=== PATIENT | female | born 1955 | race African-American/Black ===

== ENCOUNTER 2021-02-24 15:37 | Inpatient (IN) | payer OTHER ==
--- OUTSIDE RECORDS SUMMARY | 2021-02-24 15:41 | XMS REPORT | Continuity of Care Document ---
:1955 Author Organization [facility] t Address [address] [place] [address] Support Name Relationship Address Phone Emily Auguste Other Unavailable GarticaAriadna Other Unavailable GARTICA, TOM Unavailable [address] [facility] [phone] [place] [address] [place] [address] GARTICA, TOM Unavailable [address] [facility] [phone] [address] [place] [address] CESAR LAWRENCE MD Emergency Provider [address] [facility] [address] [phone] [place] [address] REYES LAWRENCE MD L Admitting Provider [address] [place] [address] GARTICA Next of Kin [address] [facility] [phone] [place] [address] Miranda CHOWDARY MD Emergency Provider [address] [facility] [place] [address] KELLEN LAWRENCE MD G Primary Care Physician [address] [place] [address] CHAPARRITA LAWRENCE Emergency Provider [address] [facility] [place] [address] GARTICA Child [address] [place] [address] MD WILLIE Emergency Provider [address] [phone] [place] [id number] ADAM Unavailable [address]available [place] [id number] MD TEVIN Emergency Provider Unavailable Unavailable MD RANJEET L Emergency Provider [address] [place] [address] DO BRENNON Emergency Provider [address] [facility] [address] [email or web address] [address] NINOSKA HAMILTON MD S Emergency Provider [address] [place] [address] MD REYES L Admitting Provider [address] [phone] [place] [address] MD JANINA Emergency Provider [address] [facility] [place] [address] MD RODRIGO O Emergency Provider [address] [place] [address] Care Team Providers Name Role Phone Grzegorz LAWRENCE, Siraj Primary Care Physician Sarah Attending Clinician Unavailable Roger Attending Clinician Unavailable Shay Attending Clinician Unavailable Brandon GONZALEZ Attending Clinician Unavailable DR DENISA Attending Clinician Unavailable Physician, Primary or Family Admitting Clinician Unavailabl e BYRON Admitting Clinician Unavailable Roger Admitting Clinician Unavailable DR DENISA Admitting Clinician Unavailable Payers Payer Name Policy Type Policy Number Effective Date Expiration Date S ource Problems Condition Condition Condition Status Onset Resolution Last Treating Co mments Source Name Details Category Date Date Treatment Clinician Date Lung mass Lung mass Disease Active Met hodi 10-05 [facility] 00[facility]00: Hospita 00 l Allergies, Adverse Reactions, Alerts Allergy Allergy Status Severity Reaction(s) Onset Inactive Treating Comm ents Source Name Type Date Date Clinician No Known DA Active U [facility] Allergie 10-14 [facility] s 00:00: d 00 [facility] No Known DA Active U [facility] Allergie 03-01 Clear s 00:00: Ellis 00 [facility] Social History Social Habit Start Date Stop Date Quantity Comments Source Sex Ass[birth year] At [birth year] [facility] 00:00:00 00:00:00 Smoking Status Start Date Stop Date Source Former smoker 2019-10-11 00:00:00 2019-10-11 00:00:00 [facility] Medications Ordered Filled Start Stop Current Ordering Indication Dosage Frequency Signature Comments Components Source Medication Medication Date Date Medication? Clinician (SIG) Name Name albuterol 2020- No [id number] 2.5mg Q6H Take 3 mL Methodi (ACCUNEB) 10-10 1004 (2.[address] 2.5 mg /3 00:00: 04:59 total) by Ho spita mL (0.083 00 :00 nebulizati l %) on every 6 nebulizer (six) solution hours as needed for wheezing for up to 30 days. albuterol 2019-0 2020- No [id number] 2{puff} Q6H Inhale 2 Method[facility] (PROAIR 10-10 10-[address] HFA) 90 00:00: 04:59 every 6 Hospit a mcg/actuati 00 :00 (six) l on inhaler hours as needed for wheezing for up to 30 days. predniSONE 2019- 2020- No Take 4 Meth carolina (DELTASONE) 10-10 09-23 tabs for 5 s t 10 mg 00:00: 04:59 days, 3 Hospita tablet 00 :00 tabs for 5 l days, 2 tabs for 5 days, 1 tabs for 5days fluticasone 2019-0 2019- No QD Inhale 1 M ethodi furoate-korey 10-07 10-01 inhalation s t anteroL 00:00: 04:59 s once Hospita (BREO 00 :00 daily for l ELLIPTA) 30 days. 100-25 mcg/dose blister with device powder for inhalation ipratropium 2019-0 Yes 3mL Q.25D Take 3 mL Methodi -albuteroL 8-[address] (DUO-NEB) 00:00: nebulizati Ho spita 0.5-2.5 00 on 4 l mg/3 mL (four) nebulizer times a day as needed for wheezing. pantoprazol 2019-0 2019- No 40mg QD Take 1 Met hodi e 10-06 09-30 tablet (40 st (Protonix) 00:00: 04:59 mg total) H ospita 40 MG EC 00 :00 by mouth l tablet daily for 30 days. albuterol 2019-0 2020- No 2{puff} Q6H Inhale 2 Method[facility] (PROAIR 10-06 09-[address] HFA) 90 00:00: 04:59 every 6 Hospit a mcg/actuati 00 :00 (six) l on inhaler hours as needed for wheezing or shortness of breath for up to 14 days. naproxen Yes Twice A Method i (EC 4-[address] NAPROSYN) 00:00: Pain Hospita 375 MG 00 l tablet,rebekah yed release (DR/EC) EC tablet traMADol-ac Yes Every 4-6 M ethodi etaminophen 4-[address] (ULTRACET) 00:00: Needed as Ho spita 37.5-325 mg 00 needed for l per tablet Pain nitrofurant Yes Twice A Met mervin velez -16 Day for - st macrocrysta 00:00: Hospit a l-monohydra 00 l te, (MACROBID) 100 MG capsule Procedures Procedure Date / Time Performed Performing Clinician Noy canada [id number] 2020-10-16 00:00:00 [facility] [id number] 2020-10-16 00:00:00 [facility] [id number] 2020-10-16 00:00:00 [facility] [id number] 2020-10-16 00:00:00 [facility] [id number] 2020-10-16 00:00:00 [facility] [id number] 2020-10-16 00:00:00 [facility] [id number] 2019-10-24 00:00:00 [facility] [id number] 2019-10-24 00:00:00 [facility] [id number] 2019-10-24 00:00:00 [facility] [id number] 2019-10-22 00:00:00 [facility] of Care Planned Activity Planned Date Details Comments Source Future Scheduled Test COVID-19 VACCINE (1) [facility] [code = COVID-19 VACCINE (1)] Future Scheduled Test Hepatitis C screening [facility] (procedure) [code = 365371262] Future Scheduled Test Screening for malignant [facility] neoplasm of cervix (procedure) [code = 591879542] Future Scheduled Test BREAST CANCER SCREENING [facility] [code = BREAST CANCER SCREENING] Future Scheduled Test COLONOSCOPY SCREENING [facility] [code = COLONOSCOPY SCREENING] Future Scheduled Test SHINGLES VACCINES (#1) [facility] [code = SHINGLES VACCINES (#1)] Future Scheduled Test INFLUENZA VACCINE [code [facility] = INFLUENZA VACCINE] Encounters Start End Encounter Admission Attending Care Care Encounter Source Date/Time Date/Time Type Type Clinicians Facility Department ID 2019-11-01 Inpatient Dated, [facility]AC[facility] ENDO [id number] [facility] 10:00:00 [facility] [id number] [facility] 2019-10-31 Inpatient Dated, [facility] ENDO [id number] [facility] 10:30:00 [facility] [id number] [facility] 2019-10-21 Inpatient HCAPM MARCELINO [id number] [facility] 07:03:00 [id number] [facility] 2020-10-14 2020-10-17 Inpatient EM Duran, HCAPM HCAPM [id number] [facility] 15:15:00 12:02:00 [facility] 99 [facility] 2020-10-14 2020-10-17 Inpatient EM Duran, HCAPM INTE.02 [id number] [facility] 15:15:00 12:02:00 [facility] [id number] [facility] 2020-10-14 2020-10-14 Outpatient Duran, HCACL LABO [id number] [facility] 01:32:00 01:32:00 [facility] [id number] [facility] 2020-10-13 2020-10-13 Inpatient EM Duran, HCAPM INTE.02 [id number] [facility] 18:32:00 18:31:00 [facility] [id number] [facility] 2019-10-21 2019-10-21 Outpatient Shay, HCACL LABO [id number] [facility] 23:52:00 23:52:00 Oladipo [id number] [facility] 2019-10-16 2019-10-16 Telephone Brandon, [id number] [id number] [place] 00:00:00 00:00:00 Cinda [id number] Hospit [id number] .[id number] l .8 2019-02-23 2019-02-23 Outpatient Jessica CRAWLEY [facility] [id number] 17:56:00 19:22:00 [facility] Results Test Description Test Time Test Comments Results Result Comments Source SURG 2020-10-20 13:30:00 Test Item Value Reference Range Interpretation Brendan loco SURG RUN DATE: (test 11/10/20 H ROB Luis Sipsey - LAB PAGE 1 RUN TIME: 1045 code = Specimen I nquiry RUN USER: INTERFACE SURG) PATIENT: XIOMARA BUTT LOC: Zarina U #: [id number] AGE/SX: 64/F ROOM: [facility] RE10/14/20REG DR: Elijah Duran MD : 57 BED: 1 DIS: 10/17/20 STATUS: DIS IN TLOC: SPEC #: [id number] RECD: STATUS: SOUT REQ #: [id number] BRENT: 10/16/20-[address]: Elijah Duran MD ENTERED: 10/16/20 SP TYPE: SURG OTHR DR: No Primary or Family Physician Sen Chew MD, Sonal MD Undefined ProviderORDERED: SURG PATH LVL / COPIES TO: No Primary or Family Physician Sen Chew MD [address] [facility] [address] [place], [place] [address] [place] [address] [place] [address] .[employer] [place] [address] [employer] [address] [place] [address] Undefined Provider HISTOLOGY : TISSUE ID BLK PCS ELGIN LEV PROCEDURE DISPOSITION ____ ___ ___ ___ LUNG, NOS A 1 2 LUNG, NOS B 1 2 LUNG, NOS C 1 2 PROCEDURES: SURG PATH LVL 4 (10/16/20-1309) TISSUES: A. LUNG, NOS - RUL ENDOBRONCHIAL BIOP SY B. LUNG, NOS - STATION 4L LYMPH NODE C. LUNG, NOS - STATION 7 LYMPH NODE CONTINUED ON NEXT PAGE RUN DATE: 11/10/20 H ROB Luis Sipsey - [facility] PAGE 2 RUN TIME: 1045 Specimen Inquiry RUN USER: INTERFACE SPEC #: [id number] PATIENT: XIOMARA BUTT #[id number] (Continued) CONSULTATION Dr. Donovan has reviewed this case and agrees with the diagnosis. CPT CODES CPT CODE(S): 60849H 3 , , , , , , FINAL DIAGNOSIS A. L karli, right upper lobe, endobronchial biopsy: INVASIVE SQUAMOUS CELL CARCINOMA, MODERATELY DIFFER ENTIATED B. Lymph node, station 4L, biopsy: ATYPICAL CELLS SUSPICIOUS FOR MALIGNANCY SEE COMMENTS C. Lymph node, station 7, biopsy: NO EVIDENCE OF SIGNIFICANT ATYPIA OR MALIGN OTONIEL SEE COMMENTS GROSS DESCRIPTION A. RUL endobronchial biopsy. Received in formalin are mu ltiple fragments of rai-brown soft tissue, 2.2 x 1.0 x 0.3 cm in aggregate. The entire specimen is fi ltered in a tea bag and submitted as A. /ba/liat B. Station 4L lymph node. Received in formalin are multiple thin cores of brown soft tissue, 1.7 x 0.4 x 0.1 cm in aggregate. The specimen is filtered in a tea bag and entirely submitted as B. /ba/liat C. Station 7 lymph node. Recei evens in formalin are multiple thin cores of brown soft tissue, 1.2 x 0.3 x 0.1 cm in aggregate. The en tire specimen is filtered in a tea bag and submitted as C. /ba/liat [facility], [address] [facility], [address], [place] [address]. [employer]: Jeff farias M.D. MICROSCOPIC DESCRIPTION A. RUL endobronchial biopsy. Sections show fragm ents of focally necrotic tissue with infiltrating neoplastic cells with increased nuclear to cytopla smic ratio and eosinophilic cytoplasm. The tumor cells are p63 positive and TTF1 negative. Focal microcalcification is also identified. Findings are CONTINUED ON NEXT PAGE RUN DATE: 11/10/20 ROB Luis Sipsey - [facility] PAGE 3 RUN TIME: 1045 Specimen Inquiry RUN USER: INTERFACE SPEC #: [facility]:[id number] PATIENT: XIOMARA BUTT #[id number] (Continued) MICROSCOPIC DESCRIPTION (Continued) consistent with invasive squamous cell carcinoma, moderately differentiated. B. Station 4L lymph node. Sections show cores of mostly blood and a few atypical cells suspici ous for malignancy. No definitive lymphoid tissue identified to confirm lymph node origin. C. Station 7 lymph node. Sections show cores of blood and benign cartilage. No lymphoid tissue identifie d. No evidence of malignancy identified. /liat The immunohistochemistry stains listed above for tech nical and professional components were performed at [facility]. CPT Code(s): 94831, 61810 MOLECULAR REPORT- ADDENDUM Addendum #1 Entered: [facility] - Molecular Genetics EGFR Mu tation Analysis by [place] Accession / CaseNo: [id number] / [id number] Specimen ID: [id number] Received Date: 11/03/2020 Report Date: 11/08/2020 Results: Test Result Mutations EGFR Mutation EGFR Exon 18 Not Detected N/A EGFR Exon 19 Not Detected N/A EGFR Exon 20 T790M Not Detected N/A EGFR Exon 20 Other Mutations Not Detected N/A EGFR Exon 21 Not Detected N/A Electronic Signature Shiping Dmitry Bean., Ph.D. The Technical Component Processing, Analys is and Professional Component of this test was completed at [facility], [address] [place] [address], [place] / [address] / [phone] / CLIA #[id number] / [employer](s): Riki mathias M.D.. The performance characteristics of this test have been determined by [facility]. This test has not been approved by the FDA. The FDA has determined such clearance or approval is not necessary. This laboratory is CLIA certified to perform high complexity clinical rui ting. Images that may be included within this report are parts representative of the patient but not all testing in its entirety and should not be used to render a result. CONTINUED ON NEXT PAGE RUN DATE: 11/10/20 H ROB Luis [facility] PAGE 4 RUN TIME: 1045 Specimen Inquiry RUN USER: INTERFACE SPEC #: [facility]:[id number] PATIENT: XIOMARA BUTT #[id number] (Continued) MOLECULAR REPORT- ADDENDUM (Continued) The CPT codes provided with our test descriptions are based on [employer] and [employer] daisy delines and are for informational purposes only. Correct CPT coding is the sole responsibility of the b illing democrat. Please direct any questions regarding coding to the payer being billed. Addendum Sign ed SIGNATURE ON FILE Malcolm Saldana 11/10/20 1044 IMMUNOHISTOCHEMICAL REPORT Addendum #1 E ntered: 11/10/20 [facility] - Molecular Gene tics EGFR Mutation Analysis by Jessica Accession / CaseNo: [id number] / [id number] Specimen ID: [id number] Received Date: 11/03/2020 Report D ate: 11/08/2020 Results: PD-L1 22C3 FDA for NSCLC: EXPRESSED Tumor Proportion Score: 40 % Intensity: 2+ ALK (D5F3) Negative - Absence of strong granular cytoplasmic staining in tu mor cells Electronic Signature Angelina Gustafson M.D., Pathologist The Technical Component Processing, Analysis and Professional Component of this test was completed at [facility], [address] [facility] [place], [place] / [address] / [phone] / CLIA #[id number] / [employer](s): Madison MetzD.. The performance characteristics of the IHC/TRINY assays have been validated o n formalin-fixed paraffin embedded tissues only. This laboratory is certified under the Clinic al Laboratory Improvement Amendments of 1988 ("CLIA") as qualified to perform high complexity clin [facility] laboratory testing. For the classifications of IHC antibodies, please contact the Client Services team. Images that may be included within this report are parts representative of the CONTINUED ON NEXT PAGE RUN DATE: 11/10/20 H ROB Luis [facility] PAGE 5 RUN TIME: 1045 Specimen Inquiry RUN USER: INTERFACE SPEC #: [facility]:[id number] PATIENT: XIOMARA BUTT #[id number] (Continued) IMMUNOHISTOCHEMICAL REPORT (Continued) patient but not all testing in its entirety and should not be used to render a result . The CPT codes provided with our test descriptions are based on AMA guidelines and are for inf ormational purposes only. Correct CPT coding is the sole responsibility of the billing democrat. Please d irect any questions regarding coding to the payer being billed. Addendum Signed SIGNATURE ON FILE Maya Mercedessymone 11/10/20 1044 COMMENT: Biopsies from pa rt B (station 4L lymph node) and part C (station 7 lymph node) show no significant lymphoid tissue. However, a few atypical cells are identified on station 4L biopsy, highly suspicious for malignancy. Clinical correlation is recommended. Signed SIGNATURE ON FILE Malcolm Mercedes 10/20/20 1330 END O F REPORT [id number] 13:30:00 Test Item Value Reference Range Interpretation Comments SURG (test code = SURG) --RUN DATE: 10/20/20 [facility] PAGE 1 RUN TIME: 1330 Specimen Inquiry RUN USER: INTERFACE --PATIENT: XIOMARA BUTT LOC: [place] U #: [id number] AGE/SX: 64/F ROOM: [facility] RE10/14/20REG DR: Elijah Duran MD : 57 BED: 1 DIS: 10/17/20 STATUS: DIS IN TLOC: -- SPEC #: [id number] RECD: 10/16/20 STATUS: ULISSES LAURENT #: [id number] BRENT: 10/16/20-[address]: Elijah Duran MD ENTERED: 10/16/20 SP TYPE: SURG OTHR DR: Nessa Primary or Family Physician Sen Chew MD, Sonal MD Undefined ProviderORDERED: SURG PATH LVL 05/10 COPIES TO: No Primary or Family Physician Sen Chew MD [address] [facility] [address] [place] [address] [place] [address] [place] [address] .[employer] [place] [address] [facility] [address] [place] [address] Undefined Provider HISTOLOGY: TISSUE ID BLK PCS ELGIN LEV PROCEDURE DISPOSITION ____ ___ ___ ___ LUNG, NOS A 1 2 LUNG, NOS B 1 2 LUNG, NOS C 1 2 PROCEDURES: SURG PATH LVL 4 (10/16/20-1310) TISSUES: A. LUNG, NOS - RUL ENDOBRONCHIAL BIOPSY B. LUNG, NOS - STATION 4L LYMPH NODE C. LUNG, NOS - STATION 7 LYMPH NODE CONTINUED ON NEXT PAGE --RUN DATE: 10/20/20 [facility] PAGE 2 RUN TIME: 1330 Specimen Inquiry RUN USER: INTERFACE --SPEC #: [id number] PATIENT: ABIOLA BUTTZAHIDACRISTELALien #[id number] (Continued) CONSULTATION Dr. Donovan has reviewed this case and agrees with the diagnosis. CPT CODES CPT CODE(S): 06897P6 , , , , , , FINAL DIAGNOSIS A. Lung, right upper lobe, endobronchial biopsy: INVASIVE SQUAMOUS CELL CARCINOMA, MODERATELY DIFFERENTIATED B. Lymph node, station 4L, biopsy: ATYPICAL CELLS SUSPICIOUS FOR MALIGNANCY SEE COMMENTS C. Lymph node, station 7, biopsy: NO EVIDENCE OF SIGNIFICANT ATYPIA OR MALIGNANCY SEE COMMENTS GROSS DESCRIPTION A. RUL endobronchial biopsy. Received in formalin are multiple fragments of rai-brown soft tissue, 2.2 x 1.0 x 0.3 cm in aggregate. The entire specimen is filtered in a tea bag and submitted as A. /ba/liat B. Station 4L lymph node. Received in formalin are multiple thin cores of brown soft tissue, 1.7 x 0.4 x 0.1 cm in aggregate. The specimen is filtered in a tea bag and entirely submitted as B. /ba/liat C. Station 7 lymph node. Received in formalin are multiple thin cores of brown soft tissue, 1.2 x 0.3 x 0.1 cm in aggregate. The entire specimen is filtered in a tea bag and submitted as C. /ba/liat Grossing performed at [facility], [address] [place] [address], [address], [place] [address]. [employer]: Jeff Hart M.D. MICROSCOPIC DESCRIPTION A. RUL endobronchial biopsy. Sections show fragments of focally necrotic tissue with infiltrating neoplastic cells with increased nuclear to cytoplasmic ratio and eosinophilic cytoplasm. The tumor cells are p63 positive and TTF1 negative. Focal microcalcification is also identified. Findings are CONTINUED ON NEXT PAGE --RUN DATE: 10/20/20 [facility] PAGE 3 RUN TIME: 1330 Specimen Inquiry RUN USER: INTERFACE --SPEC #: [facility]:[id number] PATIENT: XIOMARA BUTT #[id number] (Continued) MICROSCOPIC DESCRIPTION (Continued) consistent with invasive squamous cell carcinoma, moderately differentiated. B. Station 4L lymph node. Sections show cores of mostly blood and a few atypical cells suspicious for malignancy. No definitive lymphoid tissue identified to confirm lymph node origin. C. Station 7 lymph node. Sections show cores of blood and benign cartilage. No lymphoid tissue identified. No evidence of malignancy identified. /liat The immunohistochemistry stains listed above for technical and professional components were performed at [facility]. CPT Code(s): 65796, 44940 COMMENT: Biopsies from part B (station 4L lymph node) and part C (station 7 lymph node) show no significant lymphoid tissue. However, a few atypical cells are identified on station 4L biopsy, highly suspicious for malignancy. Clinical correlation is recommended. Signed SIGNATURE ON FILE Malcolm Mercedes 10/20/20 1330 -- END OF REPORT [id number] 12:32:00 Test Item Value Reference Range Interpretation Comments CYTOLOGY (test code = CYTO) RUN DATE: 10/20/20 [facility] PAGE 1 RUN TIME: 1232 Specimen Inquiry RUN USER: INTERFACE PATIENT: XIOMARA BUTT LOC: [place]ina U #: [id number] AGE/SX: 64/F ROOM: [facility] RE10/14/20[facility] DR: Elijah Duran MD : 57 BED: 1 DIS: 10/17/20 STATUS: DIS IN TLOC: SPEC #: [id number] RECD: 10/16/200 STATUS: ULISSES REAlivia #: [id number] BRENT: 10/16/[address]: Elijah Duran MD ENTERED: 10/16/20 SP TYPE: CYTOLOGY OTHR DR: No Primary or Family Physician Sen Chew MD, Sonal MD Undefined ProviderORDERED: AFB, GMS, SUREPATH COPIES TO: No Primary or Family Physician Sen Chew MD [address] [facility] [address] [place], [place] [address] [place] [address] [place] [address] [email or web address] [place] [address] [facility] [address] [place] [address] Undefined Provider HISTOLOGY: TISSUE ID BLK PCS ELGIN LEV PROCEDURE DISPOSITION ____ ___ ___ ___ LUNG, NOS A 3S PROCEDURES: AFB (10/16/20) GMS (10/16/20) SUREPATH (10/16/20) TISSUES: A. LUNG, NOS - RUL BAL CONTINUED ON NEXT PAGE RUN DATE: 10/20/20 [facility] PAGE 2 RUN TIME: 1232 Specimen Inquiry RUN USER: INTERFACE SPEC #: [id number] PATIENT: XIOMARA BUTT #[id number] (Continued) CONSULTATION Dr. Donovan has reviewed this case and agrees with the diagnosis. CPT CODES CPT CODE(S): 56878T4 , 90492 , , , , , FINAL DIAGNOSIS Lung, right upper lobe, bronchoalveolar lavage: ATYPICAL CELLS SUSPICOUS FOR MALIGNANCY (See comments) NO DEFINITIVE EVIDENCE OF MALIGNANCY GROSS DESCRIPTION Right upper lobe BAL. Received are 25 mL of bloody fluid. Thin-layers are prepared from the fluid and submitted for Pap, GMS and AFB stains. /pdb Grossing performed at [facility], [address] [place] [address], [address], [place] [address]. [employer]: Jeff Hart M.D. MICROSCOPIC DESCRIPTION Right upper lobe BAL. Thin-layer, GMS and AFB stained slides are reviewed. The thin-layer slide shows squamous cells, histiocytes and columnar cells. There are a few groups of atypical cells that are suspicous for malignancy. No fungal organisms or acid-fast bacilli identified GMS and AFB stains. respectively. /pdb COMMENT: There are few clusters of atypical cells identified. Findings suspicous for malignancy. Please correlate with corresponding biopsy submitted under separate cover: [id number]:[id number]. - Signed SIGNATURE ON FILE Malcolm Mercedes 10/20/20 1232 END OF REPORT BODY FLUID CELL [id number] 20:10:00 Test Item Value Reference Range Interpretation Comments FLUID SOURCE (test OTHER DESCRIPT FLUID TYPE code = SOURCEFL) FLUID COLOR (test RED DESCRIP. COLORLESS code = COLFL) FLUID APPEARANCE BLOODY DESCRIP. CLEAR (test code = APPFL) FLUID WBC (test 175 #/mm3 0-0 H code = WBCFL) FLUID RBC (test 6505 #/mm3 0-0 H code = RBCFL) FLUID POLY (test 37 % See_Comment [Automated code = POLYFL) message] The system which generated this result transmitted reference range : 0-. The referen ce range was not u sed to interpret th is result as normal/abnormal . FLUID LYMPHOCYTE 42 % 0-78 N (test code = LYMPHFL) FLUID MONOCYTE 21 % 0-71 N (test code = MONOFL) FLUID COMMENT (test 0%CREN INTERP NONE code = COMFL) CBC W/AUTO [id number] 06:52:00 Test Item Value Reference Range Interpretation Comments WHITE BLOOD CELL 11.1 K/mm3 3.5-11.0 H (test code = WBC) RED BLOOD CELL (test 4.24 M/mm3 4.70-6.10 L code = RBC) HEMOGLOBIN (test code 12.8 G/DL 10.4-14.9 N = HGB) HEMATOCRIT (test code 40.0 % 31.5-44.1 N = HCT) MEAN CELL VOLUME 94.3 Fl 84.5-98.6 N (test code = MCV) MEAN CELL HGB (test 30.2 pg 27.0-34.2 N code = MCH) MEAN CELL HGB 32.0 G/DL 31.5-34.0 N CONCETRATION (test code = MCHC) RED CELL DISTRIBUTION 13.2 SD 11.5-14.5 N WIDTH (test code = RDW) PLATELET COUNT (test 256 K/mm3 150-450 N code = PLT) MEAN PLATELET VOLUME 8.80 fL 7.0-10.5 N (test code = MPV) NEUTROPHIL % (test 95.8 % 40-76 H code = NT%) IMMATURE GRANULOCYTE 0.6 % 0.0-5.0 N % (test code = IG%) LYMPHOCYTE % (test 2.2 % 20.5-51.1 L code = LY%) MONOCYTE % (test code 1.3 % 1.7-9.3 L = MO%) EOSINOPHIL % (test 0.0 % 0.0-6.0 N code = EO%) BASOPHIL % (test code 0.1 % 0.0-2.0 N = BA%) NUCLEATED RBC % (test 0.0 /100WBC% 0.0-1.0 N code = NRBC%) NEUTROPHIL # (test 10.6 K/mm3 1.8-7.6 H code = NT#) IMMATURE GRANULOCYTE 0.07 x10 3/uL 0.00-0.03 H # (test code = IG#) LYMPHOCYTE # (test 0.3 K/mm3 0.6-3.2 L code = LY#) MONOCYTE # (test code 0.2 K/mm3 0.3-1.1 L = MO#) EOSINOPHIL # (test 0.0 K/mm3 0.0-0.4 N code = EO#) BASOPHIL # (test code 0.0 K/mm3 0.0-0.1 N = BA#) NUCLEATED RBC # (test 0.0 K/mm3 0.0-0.1 N code = NRBC#) MANUAL DIFF REQUIRED NO DIFF/SCN CRITERIA SLIDE R JEANNE (test code = MDIFF) CONSISTA NT WITH AUTO DIFFERENTI AL. BASIC METABOLIC [id number] 06:26:00 Test Item Value Reference Range Interpretation Comments SODIUM (test code = NA) 143 mmol/L 134-147 N POTASSIUM (test code = 3.9 mmol/L 3.4-5.0 N K) CHLORIDE (test code = 108 mmol/L 100-108 N CL) CARBON DIOXIDE (test 29 mmol/L 21-32 N code = CO2) ANION GAP (test code = 6.0 GAP calc 4.0-15.0 N GAP) GLUCOSE (test code = 121 MG/DL 70-110 H GLU) BLOOD UREA NITROGEN 19 MG/DL 7-18 H (test code = BUN) GLOMERULAR FILTRATION >=60 max estimate >60 RATE (test code = GFR) estGFR CREATININE (test code = 0.6 MG/DL 0.6-1.0 N CREAT) CALCIUM (test code = CA) 9.3 MG/DL 8.5-10.1 N CBC W/AUTO [id number] 05:52:00 Test Item Value Reference Range Interpretation Comments WHITE BLOOD CELL (test code = WBC) 11.1 K/mm3 3.5-11.0 H RED BLOOD CELL (test code = RBC) 4.24 M/mm3 4.70-6.10 L HEMOGLOBIN (test code = HGB) 12.8 G/DL 10.4-14.9 N HEMATOCRIT (test code = HCT) 40.0 % 31.5-44.1 N MEAN CELL VOLUME (test code = MCV) 94.3 Fl 84.5-98.6 N MEAN CELL HGB (test code = MCH) 30.2 pg 27.0-34.2 N MEAN CELL HGB CONCETRATION (test 32.0 G/DL 31.5-34.0 N code = MCHC) RED CELL DISTRIBUTION WIDTH (test SD 11.5-14.5 N code = RDW) PLATELET COUNT (test code = PLT) 256 K/mm3 150-450 N MEAN PLATELET VOLUME (test code = fL 7.0-10.5 N MPV) NEUTROPHIL % (test code = NT%) % 40-76 H IMMATURE GRANULOCYTE % (test code % 0.0-5.0 N = IG%) LYMPHOCYTE % (test code = LY%) % 20.5-51.1 L MONOCYTE % (test code = MO%) % 1.7-9.3 L EOSINOPHIL % (test code = EO%) % 0.0-6.0 N BASOPHIL % (test code = BA%) % 0.0-2.0 N NUCLEATED RBC % (test code = /100WBC% 0.0-1.0 N NRBC%) NEUTROPHIL # (test code = NT#) K/mm3 1.8-7.6 H IMMATURE GRANULOCYTE # (test code x10 3/uL 0.00-0.03 H = IG#) LYMPHOCYTE # (test code = LY#) K/mm3 0.6-3.2 L MONOCYTE # (test code = MO#) K/mm3 0.3-1.1 L EOSINOPHIL # (test code = EO#) K/mm3 0.0-0.4 N BASOPHIL # (test code = BA#) K/mm3 0.0-0.1 N NUCLEATED RBC # (test code = K/mm3 0.0-0.1 N NRBC#) MANUAL DIFF REQUIRED (test code = DIFF/SCN CRITERIA MDIFF) CBC W/AUTO [id number] 07:06:00 Test Item Value Reference Range Interpretation Comments WHITE BLOOD CELL 12.7 K/mm3 3.5-11.0 H (test code = WBC) RED BLOOD CELL (test 4.07 M/mm3 4.70-6.10 L code = RBC) HEMOGLOBIN (test code 12.5 G/DL 10.4-14.9 N = HGB) HEMATOCRIT (test code 38.9 % 31.5-44.1 N = HCT) MEAN CELL VOLUME 95.6 Fl 84.5-98.6 N (test code = MCV) MEAN CELL HGB (test 30.7 pg 27.0-34.2 N code = MCH) MEAN CELL HGB 32.1 G/DL 31.5-34.0 N CONCETRATION (test code = MCHC) RED CELL DISTRIBUTION 13.2 SD 11.5-14.5 N WIDTH (test code = RDW) PLATELET COUNT (test 243 K/mm3 150-450 N code = PLT) MEAN PLATELET VOLUME 10.40 fL 7.0-10.5 N (test code = MPV) NEUTROPHIL % (test 94.1 % 40-76 H code = NT%) IMMATURE GRANULOCYTE 0.6 % 0.0-5.0 N % (test code = IG%) LYMPHOCYTE % (test 2.7 % 20.5-51.1 L code = LY%) MONOCYTE % (test code 2.5 % 1.7-9.3 N = MO%) EOSINOPHIL % (test 0.0 % 0.0-6.0 N code = EO%) BASOPHIL % (test code 0.1 % 0.0-2.0 N = BA%) NUCLEATED RBC % (test 0.0 /100WBC% 0.0-1.0 N code = NRBC%) NEUTROPHIL # (test 12.0 K/mm3 1.8-7.6 H code = NT#) IMMATURE GRANULOCYTE 0.08 x10 3/uL 0.00-0.03 H # (test code = IG#) LYMPHOCYTE # (test 0.3 K/mm3 0.6-3.2 L code = LY#) MONOCYTE # (test code 0.3 K/mm3 0.3-1.1 N = MO#) EOSINOPHIL # (test 0.0 K/mm3 0.0-0.4 N code = EO#) BASOPHIL # (test code 0.0 K/mm3 0.0-0.1 N = BA#) NUCLEATED RBC # (test 0.0 K/mm3 0.0-0.1 N code = NRBC#) MANUAL DIFF REQUIRED NO DIFF/SCN CRITERIA SLIDE R MAIRAW (test code = MDIFF) CONSISTA NT WITH AUTO DIFFERENTI AL. BASIC METABOLIC [id number] 06:06:00 Test Item Value Reference Range Interpretation Comments SODIUM (test code = NA) 139 mmol/L 134-147 N POTASSIUM (test code = 4.3 mmol/L 3.4-5.0 N K) CHLORIDE (test code = 107 mmol/L 100-108 N CL) CARBON DIOXIDE (test 29 mmol/L 21-32 N code = CO2) ANION GAP (test code = 3.0 GAP calc 4.0-15.0 L GAP) GLUCOSE (test code = 123 MG/DL 70-110 H GLU) BLOOD UREA NITROGEN 16 MG/DL 7-18 N (test code = BUN) GLOMERULAR FILTRATION >=60 max estimate >60 RATE (test code = GFR) estGFR CREATININE (test code = 0.5 MG/DL 0.6-1.0 L CREAT) CALCIUM (test code = CA) 9.1 MG/DL 8.5-10.1 N CBC W/AUTO [id number] 05:34:00 Test Item Value Reference Range Interpretation Comments WHITE BLOOD CELL (test code = WBC) 12.7 K/mm3 3.5-11.0 H RED BLOOD CELL (test code = RBC) 4.07 M/mm3 4.70-6.10 L HEMOGLOBIN (test code = HGB) 12.5 G/DL 10.4-14.9 N HEMATOCRIT (test code = HCT) 38.9 % 31.5-44.1 N MEAN CELL VOLUME (test code = MCV) 95.6 Fl 84.5-98.6 N MEAN CELL HGB (test code = MCH) 30.7 pg 27.0-34.2 N MEAN CELL HGB CONCETRATION (test 32.1 G/DL 31.5-34.0 N code = MCHC) RED CELL DISTRIBUTION WIDTH (test SD 11.5-14.5 N code = RDW) PLATELET COUNT (test code = PLT) 243 K/mm3 150-450 N MEAN PLATELET VOLUME (test code = fL 7.0-10.5 N MPV) NEUTROPHIL % (test code = NT%) % 40-76 H IMMATURE GRANULOCYTE % (test code % 0.0-5.0 N = IG%) LYMPHOCYTE % (test code = LY%) % 20.5-51.1 L MONOCYTE % (test code = MO%) % 1.7-9.3 N EOSINOPHIL % (test code = EO%) % 0.0-6.0 N BASOPHIL % (test code = BA%) % 0.0-2.0 N NUCLEATED RBC % (test code = /100WBC% 0.0-1.0 N NRBC%) NEUTROPHIL # (test code = NT#) K/mm3 1.8-7.6 H IMMATURE GRANULOCYTE # (test code x10 3/uL 0.00-0.03 H = IG#) LYMPHOCYTE # (test code = LY#) K/mm3 0.6-3.2 L MONOCYTE # (test code = MO#) K/mm3 0.3-1.1 N EOSINOPHIL # (test code = EO#) K/mm3 0.0-0.4 N BASOPHIL # (test code = BA#) K/mm3 0.0-0.1 N NUCLEATED RBC # (test code = K/mm3 0.0-0.1 N NRBC#) MANUAL DIFF REQUIRED (test code = DIFF/SCN CRITERIA MDIFF) CBC W/AUTO [id number] 06:21:00 Test Item Value Reference Range Interpretation Comments WHITE BLOOD CELL 6.1 K/mm3 3.5-11.0 N (test code = WBC) RED BLOOD CELL (test 4.07 M/mm3 4.70-6.10 L code = RBC) HEMOGLOBIN (test code 12.4 G/DL 10.4-14.9 N = HGB) HEMATOCRIT (test code 39.4 % 31.5-44.1 N = HCT) MEAN CELL VOLUME 96.8 Fl 84.5-98.6 N (test code = MCV) MEAN CELL HGB (test 30.5 pg 27.0-34.2 N code = MCH) MEAN CELL HGB 31.5 G/DL 31.5-34.0 N CONCETRATION (test code = MCHC) RED CELL DISTRIBUTION 13.2 SD 11.5-14.5 N WIDTH (test code = RDW) PLATELET COUNT (test 261 K/mm3 150-450 N code = PLT) MEAN PLATELET VOLUME 9.20 fL 7.0-10.5 N (test code = MPV) NEUTROPHIL % (test 96.0 % 40-76 H code = NT%) IMMATURE GRANULOCYTE 0.2 % 0.0-5.0 N % (test code = IG%) LYMPHOCYTE % (test 2.6 % 20.5-51.1 L code = LY%) MONOCYTE % (test code 1.2 % 1.7-9.3 L = MO%) EOSINOPHIL % (test 0.0 % 0.0-6.0 N code = EO%) BASOPHIL % (test code 0.0 % 0.0-2.0 N = BA%) NUCLEATED RBC % (test 0.0 /100WBC% 0.0-1.0 N code = NRBC%) NEUTROPHIL # (test 5.8 K/mm3 1.8-7.6 N code = NT#) IMMATURE GRANULOCYTE 0.01 x10 3/uL 0.00-0.03 N # (test code = IG#) LYMPHOCYTE # (test 0.2 K/mm3 0.6-3.2 L code = LY#) MONOCYTE # (test code 0.1 K/mm3 0.3-1.1 L = MO#) EOSINOPHIL # (test 0.0 K/mm3 0.0-0.4 N code = EO#) BASOPHIL # (test code 0.0 K/mm3 0.0-0.1 N = BA#) NUCLEATED RBC # (test 0.0 K/mm3 0.0-0.1 N code = NRBC#) MANUAL DIFF REQUIRED NO DIFF/SCN CRITERIA SLIDE R EVIEW (test code = MDIFF) CONSISTA NT WITH AUTO DIFFERENTI AL. BASIC METABOLIC [id number] 06:08:00 Test Item Value Reference Range Interpretation Comments SODIUM (test code = NA) 141 mmol/L 134-147 N POTASSIUM (test code = 4.4 mmol/L 3.4-5.0 N K) CHLORIDE (test code = 109 mmol/L 100-108 H CL) CARBON DIOXIDE (test 26 mmol/L 21-32 N code = CO2) ANION GAP (test code = 6.0 GAP calc 4.0-15.0 N GAP) GLUCOSE (test code = 147 MG/DL 70-110 H GLU) BLOOD UREA NITROGEN 18 MG/DL 7-18 N (test code = BUN) GLOMERULAR FILTRATION >=60 max estimate >60 RATE (test code = GFR) estGFR CREATININE (test code = 0.7 MG/DL 0.6-1.0 N CREAT) CALCIUM (test code = CA) 8.8 MG/DL 8.5-10.1 N [id number] 06:08:00 Test Item Value Reference Range Interpretation Comments PHOSPHOROUS (test code = PHOS) 2.9 MG/DL 2.5-4.9 N [id number] 06:08:00 Test Item Value Reference Range Interpretation Comments MAGNESIUM (test code = MAG) 2.1 MG/DL 1.8-2.4 N [id number] 06:08:00 Test Item Value Reference Range Interpretation Comments TROPONIN-I (test < 0.015 NG/ML 0.000-0.045 N Negative: </= 0.045 code = TROPI) Positive: >/= 0.046 Correlation wit h serial results, other cardiac markers, and cl inical findings is nec essary to determine the c linical significance of this result. Quantit ative results using d ifferent methodologies s hould not be compared to one another as nume rical results may mireille yby method. BASIC METABOLIC [id number] 04:54:00 Test Item Value Reference Range Interpretation Comments SODIUM (test code = NA) 141 mmol/L 134-147 N POTASSIUM (test code = 4.4 mmol/L 3.4-5.0 N K) CHLORIDE (test code = 109 mmol/L 100-108 H CL) CARBON DIOXIDE (test 26 mmol/L 21-32 N code = CO2) ANION GAP (test code = 6.0 GAP calc 4.0-15.0 N GAP) GLUCOSE (test code = 147 MG/DL 70-110 H GLU) BLOOD UREA NITROGEN 18 MG/DL 7-18 N (test code = BUN) GLOMERULAR FILTRATION >=60 max estimate >60 RATE (test code = GFR) estGFR CREATININE (test code = 0.7 MG/DL 0.6-1.0 N CREAT) CALCIUM (test code = CA) 8.8 MG/DL 8.5-10.1 N [id number] 04:54:00 Test Item Value Reference Range Interpretation Comments PHOSPHOROUS (test code = PHOS) 2.9 MG/DL 2.5-4.9 N [id number] 04:54:00 Test Item Value Reference Range Interpretation Comments MAGNESIUM (test code = MAG) 2.1 MG/DL 1.8-2.4 N [id number] 04:54:00 Test Item Value Reference Range Interpretation Comments TROPONIN-I (test code = TROPI) NG/ML 0.000-0.045 CBC W/AUTO [id number] 04:32:00 Test Item Value Reference Range Interpretation Comments WHITE BLOOD CELL (test code = WBC) 6.1 K/mm3 3.5-11.0 N RED BLOOD CELL (test code = RBC) 4.07 M/mm3 4.70-6.10 L HEMOGLOBIN (test code = HGB) 12.4 G/DL 10.4-14.9 N HEMATOCRIT (test code = HCT) 39.4 % 31.5-44.1 N MEAN CELL VOLUME (test code = MCV) 96.8 Fl 84.5-98.6 N MEAN CELL HGB (test code = MCH) 30.5 pg 27.0-34.2 N MEAN CELL HGB CONCETRATION (test 31.5 G/DL 31.5-34.0 N code = MCHC) RED CELL DISTRIBUTION WIDTH (test SD 11.5-14.5 N code = RDW) PLATELET COUNT (test code = PLT) 261 K/mm3 150-450 N MEAN PLATELET VOLUME (test code = fL 7.0-10.5 N MPV) NEUTROPHIL % (test code = NT%) % 40-76 H IMMATURE GRANULOCYTE % (test code % 0.0-5.0 N = IG%) LYMPHOCYTE % (test code = LY%) % 20.5-51.1 L MONOCYTE % (test code = MO%) % 1.7-9.3 L EOSINOPHIL % (test code = EO%) % 0.0-6.0 N BASOPHIL % (test code = BA%) % 0.0-2.0 N NUCLEATED RBC % (test code = /100WBC% 0.0-1.0 N NRBC%) NEUTROPHIL # (test code = NT#) K/mm3 1.8-7.6 N IMMATURE GRANULOCYTE # (test code x10 3/uL 0.00-0.03 N = IG#) LYMPHOCYTE # (test code = LY#) K/mm3 0.6-3.2 L MONOCYTE # (test code = MO#) K/mm3 0.3-1.1 L EOSINOPHIL # (test code = EO#) K/mm3 0.0-0.4 N BASOPHIL # (test code = BA#) K/mm3 0.0-0.1 N NUCLEATED RBC # (test code = K/mm3 0.0-0.1 N NRBC#) MANUAL DIFF REQUIRED (test code = DIFF/SCN CRITERIA MDIFF) [id number] 01:54:00 Test Item Value Reference Range Interpretation Comments TROPONIN-I (test < 0.015 NG/ML 0.000-0.045 N Negative: </= 0.045 code = TROPI) Positive: >/= 0.046 Correlation wit h serial results, other cardiac markers, and cl inical findings is nec essary to determine the c linical significance of this result. Quantit ative results using d ifferent methodologies s hould not be compared to one another as nume rical results may mireille yby method. Completed by Nursing: REI RFLX MICR CULT IF [id number] 01:42:00 Test Item Value Reference Range Interpretation Comments UA COLOR (test code = COLU) YELLOW discript YEL/STRAW UA APPEARANCE (test code = CLEAR discript CLEAR APPU) UA GLUCOSE DIPSTICK (test 2+ mg/dL NEG code = DGLUU) UA BILIRUBIN DIPSTICK (test NEGATIVE mg/dL NEG code = BILU) UA KETONE DIPSTICK (test NEGATIVE mg/dL NEG code = KETU) UA SPECIFIC GRAVITY (test 1.010 SG 1.005-1.030 code = SGU) UA BLOOD DIPSTICK (test TRACE mg/DL NEG A code = TONY) UA PH DIPSTICK (test code = 6.0 pH UNITS 5.0-7.0 SHON) UA PROTEIN DIPSTICK (test NEGATIVE mg/dL NEG code = PROU) UA UROBILINIOGEN DIPSTICK 0.2 mg/dL <2.0 (test code = URO) UA NITRITE DIPSTICK (test NEGATIVE SCREEN NEG code = NICOLLE) UA LEUKOCYTE ESTERASE NEGATIVE Leuk/mcL NEGATIVE DIPSTICK (test code = LEUU) UA CULTURE NEEDED? (test Criteria Culture CHK code = UACULT) Indication for culture: Dysuria/FrequencyUA RFLX MICR CULT IF INDICATED 2020-10-14 01:42:00 Test Item Value Reference Range Interpretation Comments UA COLOR (test code = COLU) YELLOW discript YEL/STRAW UA APPEARANCE (test code = CLEAR discript CLEAR APPU) UA GLUCOSE DIPSTICK (test 2+ mg/dL NEG code = DGLUU) UA BILIRUBIN DIPSTICK (test NEGATIVE mg/dL NEG code = BILU) UA KETONE DIPSTICK (test NEGATIVE mg/dL NEG code = KETU) UA SPECIFIC GRAVITY (test 1.010 SG 1.005-1.030 code = SGU) UA BLOOD DIPSTICK (test TRACE mg/DL NEG A code = TONY) UA PH DIPSTICK (test code = 6.0 pH UNITS 5.0-7.0 SHON) UA PROTEIN DIPSTICK (test NEGATIVE mg/dL NEG code = PROU) UA UROBILINIOGEN DIPSTICK 0.2 mg/dL <2.0 (test code = URO) UA NITRITE DIPSTICK (test NEGATIVE SCREEN NEG code = NICOLLE) UA LEUKOCYTE ESTERASE NEGATIVE Leuk/mcL NEGATIVE DIPSTICK (test code = LEUU) Indication for culture: [id number] 22:57:00 Test Item Value Reference Range Interpretation Comments D-DIMER (test 1313 ng/mLFEU 215-500 HH THROMBOSIS AN D/OR PULMONARY code = EMBOLISM AND TH E CLINICAL DDIMER) CUT-OFF VALUE F OR EXCLUSION (500 ng/mL FEU) OF THESE CONDITIONSIS VA LIDATED BY THE MANUFACTURE R OF THE METHOD. A NEGAT QUINTON D-DIMER RESULT WHEN COM BINED WITH A CLINICALASSESSM ENT OF LOW PRETEST PROBABI LITY HAS BEEN SHOWN TO H AVEA HIGH NEGATIVE PREDIC TIVE VALUE OF DVT OR PE. D -DIMER VALUES >500 ng/ mL FEU ARE NOT DIAGNOSTIC FOR DVT, PEor DIC WITHOU T OTHER CONFIRMATORY TE STS AND APPROPRIATECLIN ICAL EUALUATIONS. - CTA CHEST FOR [id number] 22:38:00 [facility] 1955 Sex: F Name: XIOMARA BUTT [facility]ly [facility] : 1955ge/S: 64 / F [address] [address] [place] [employer] Unit #: [id number] Loc: [place] [address] Phys: Danie Diaz Acct: [id number] Dis Date: Status: ADM IN PHONE#: [phone] Exam Date: 10/13/20202219 FAX #: Reason:hypoxia, r/o PE, evaluate right hemithorax EXAMS: CPT: [id number] [place] [id number] AFTER HOURS SERVICE ON: 10/13/2020 10:[address] Scan of the Chest With ContrastLocation Code M12 History: hypoxia, r/o PE, evaluate right hemithorax Technique: Scans were performed on a helical scanner post IV contrast. Coronal and sagittal reconstructions were performed. 3-D post processing was not performed. One or more of the following dose reduction techniques were used: Automated exposure control, adjustment of the mA and/or kV according to patient size, and/or utilization of iterative reconstruction technique. FINDINGS: There are no filling defects in the pulmonary arteries to suggest a pulmonary embolism. No large central or saddle embolus is seen in the pulmonary trunk. No aortic aneurysm or dissection seen. There is extensive consolidation in the right upper lobe likely representing postobstructive pneumonitis and atelectasis. There is truncation of the upper lobe bronchi. There is significant narrowing of the descending and right middle lobe bronchi. Ill-defined soft tissue encasement is noted in the right hilum. On today's examination, the density appears very ill-defined rather than masslike as compared to the prior of 10/21/2019. Estimated dimensions are 4.5 x 3.6 cm, previously 6.8 x 3.9 cm. Heart and mediastinum are shifted to the right. There is no cardiom egaly or pericardial effusion. Scattered peripheral infiltrates are seen in the lower lobes bilaterally. There are emphysematous changes. There is no pulmonary edema. There is no pneumothorax. No osseous destructive lesions are seen. IMPRESSION:No evidence of pulmonary embolism, aortic aneurysm or dissection. Extensive right upper lobe atelectasis and postobstructive pneumonitis due to an ill-defined soft tissue density in the right hilum encasing the bronchi as further described above. These findings may be PAGE 1 Signed Report (CONTINUED) Name: XIOMARA BUTT [facility]ly [facility] : 1955 Age/S: 64 / F [address] [address] [place] [employer] Unit #: [id number] Loc: [place] [address] Phys: Danie Diaz Acct: [id number] Dis Date: Status: ADM IN PHONE #: [phone] Exam Date: 10/13/20202219 FAX #: Reason: hypoxia, r/o PE, evaluate right hemithorax EXAMS: CPT: [id number] [id number] <Continued> consistentwith recurrent neoplasm. Follow-up PET scan is recommended. Small peripheral infiltrates in the lung bases. Emphysematous changes. at 2238 Reported and signed by: Joselyn Lindsey M.D. CC: Danie HERNANDEZ; Elijah Duran MD Technologist:RT Gail(R) CTDI: DLP: Trnscb Date/Time: 10/13/2020 (2237) [email or web address] Orig Print D/T: S: 10/13/2020 (8356) PAGE 2 Signed Report COVID 19 INHOUSE [id number] 21:42:00 Test Item Value Reference Range Interpretation Comments COVID 19 INHOUSE AG NEGATIVE Negative Per saba facturer, (test code = negative result s should [id number]) be treated aspr esumptive and, if inconsi stent with clinical signs andsymptoms or necessary for patient man agement, should betested with an alternative mol ecular assay. Negative resultsdo not preclude SA RS-CoV-2 infection and s hould not be usedas the s ole basis for patient man agement decisions. Neg ative results should be considered in t he context of apatient's r ecent exposures, hist ory, presence of cli nicalsigns and symptoms co nsistent with COVID-19. CBC W/AUTO [id number] 21:03:00 Test Item Value Reference Range Interpretation Comments WHITE BLOOD CELL 7.2 K/mm3 3.5-11.0 N (test code = WBC) RED BLOOD CELL (test 4.15 M/mm3 4.70-6.10 L code = RBC) HEMOGLOBIN (test code 12.8 G/DL 10.4-14.9 N = HGB) HEMATOCRIT (test code 39.5 % 31.5-44.1 N = HCT) MEAN CELL VOLUME 95.2 Fl 84.5-98.6 N (test code = MCV) MEAN CELL HGB (test 30.8 pg 27.0-34.2 N code = MCH) MEAN CELL HGB 32.4 G/DL 31.5-34.0 N CONCETRATION (test code = MCHC) RED CELL DISTRIBUTION 13.4 SD 11.5-14.5 N WIDTH (test code = RDW) PLATELET COUNT (test 253 K/mm3 150-450 N code = PLT) MEAN PLATELET VOLUME 9.00 fL 7.0-10.5 N (test code = MPV) NEUTROPHIL % (test 88.5 % 40-76 H code = NT%) IMMATURE GRANULOCYTE 0.3 % 0.0-5.0 N % (test code = IG%) LYMPHOCYTE % (test 5.2 % 20.5-51.1 L code = LY%) MONOCYTE % (test code 3.5 % 1.7-9.3 N = MO%) EOSINOPHIL % (test 2.4 % 0.0-6.0 N code = EO%) BASOPHIL % (test code 0.1 % 0.0-2.0 N = BA%) NUCLEATED RBC % (test 0.0 /100WBC% 0.0-1.0 N code = NRBC%) NEUTROPHIL # (test 6.3 K/mm3 1.8-7.6 N code = NT#) IMMATURE GRANULOCYTE 0.02 x10 3/uL 0.00-0.03 N # (test code = IG#) LYMPHOCYTE # (test 0.4 K/mm3 0.6-3.2 L code = LY#) MONOCYTE # (test code 0.3 K/mm3 0.3-1.1 N = MO#) EOSINOPHIL # (test 0.2 K/mm3 0.0-0.4 N code = EO#) BASOPHIL # (test code 0.0 K/mm3 0.0-0.1 N = BA#) NUCLEATED RBC # (test 0.0 K/mm3 0.0-0.1 N code = NRBC#) MANUAL DIFF REQUIRED NO DIFF/SCN CRITERIA SLIDE R MAIRAW (test code = MDIFF) CONSISTA NT WITH AUTO DIFFERENTI AL. ARTERIAL BLOOD [id number] 20:16:00 Test Item Value Reference Range Interpretation Comments ARTERIAL BLOOD GAS PH 7.36 pH units 7.35-7.45 N (test code = PHA) ARTERIAL BLOOD GAS PCO2 52 mmHg 35-45 H (test code = PCO2A) ARTERIAL BLOOD GAS PO2 85 mmHg 80-100 N (test code = PO2A) BICARBONATE TOTAL HCO3 28.4 mmol/L 22.0-26.0 H (test code = HCO3) BASE EXCESS (test code = 1.9 mmol/L -3.0-3.0 N JUAN J) ABG O2 SATURATION (test 96 % 90-100 N code = SATA) FIO2 (test code = FIO2A) 40 % (calc) 21-100 N ABG VENT MODE (test code Nasal Cannula Vent Mode = MODEA) Descript ABG SITE (test code = Right Radial ARTKIT DESCRIPTION SITEA) MODIFIED HA'S (test Yes Circ.CHK POSITIVE code = MODALL) [id number] 20:16:00 Test Item Value Reference Range Interpretation Comments PaO2/FiO2 (test 212.5 mm/Hg See_Comment [Automated message] The code = [id number]) system [facility] generated this result tra nsmitted reference range : 200. The reference r mirza was not used to int erpret this result as normal/abnormal . ARTERIAL BLOOD [id number] 20:15:00 Test Item Value Reference Range Interpretation Comments ARTERIAL BLOOD GAS PH 7.36 pH units 7.35-7.45 N (test code = PHA) ARTERIAL BLOOD GAS PCO2 52 mmHg 35-45 H (test code = PCO2A) ARTERIAL BLOOD GAS PO2 85 mmHg 80-100 N (test code = PO2A) BICARBONATE TOTAL HCO3 28.4 mmol/L 22.0-26.0 H (test code = HCO3) BASE EXCESS (test code = 1.9 mmol/L -3.0-3.0 N JUAN J) ABG O2 SATURATION (test 96 % 90-100 N code = SATA) FIO2 (test code = FIO2A) 40 % (calc) 21-100 N ABG VENT MODE (test code Nasal Cannula Vent Mode = MODEA) Descript ABG SITE (test code = Right Radial ARTKIT DESCRIPTION SITEA) MODIFIED HA'S (test Yes Circ.CHK POSITIVE code = MODALL) [id number] 20:15:00 Test Item Value Reference Range Interpretation Comments PaO2/FiO2 (test code mm/Hg See_Comment [Autom ated message] The = [id number]) system which ge nerated this result transmit sánchez reference range : 200. The reference range was not used to interpr et this result as martha l/abnormal. COMPREHENSIVE METABOLIC [id number] 20:14:00 Test Item Value Reference Range Interpretation Comments SODIUM (test code = NA) 143 mmol/L 134-147 N POTASSIUM (test code = 4.0 mmol/L 3.4-5.0 N K) CHLORIDE (test code = 109 mmol/L 100-108 H CL) CARBON DIOXIDE (test 29 mmol/L 21-32 N code = CO2) ANION GAP (test code = 5.0 GAP calc 4.0-15.0 N GAP) GLUCOSE (test code = 111 MG/DL 70-110 H GLU) BLOOD UREA NITROGEN 19 MG/DL 7-18 H (test code = BUN) GLOMERULAR FILTRATION >=60 max estimate >60 RATE (test code = GFR) estGFR CREATININE (test code = 1.0 MG/DL 0.6-1.0 N CREAT) TOTAL PROTEIN (test code 7.2 G/DL 6.4-8.2 N = PROT) ALBUMIN (test code = 3.1 G/DL 3.4-5.0 L ALB) GLOBULIN (test code = 4.1 GM/dL GLOB) ALBUMIN/GLOBULIN RATIO 0.8 RATIO 1.2-2.2 L (test code = A/G) CALCIUM (test code = CA) 8.8 MG/DL 8.5-10.1 N BILIRUBIN TOTAL (test 0.10 MG/DL 0.2-1.2 L code = BILT) SGOT/AST (test code = 23 Unit/L 15-37 N AST) SGPT/ALT (test code = 58 Unit/L 12-78 N ALT) ALKALINE PHOSPHATASE 133 Unit/L 45-117 H TOTAL (test code = ALKP) RULE OUT ND [id number] 20:14:00 Test Item Value Reference Range Interpretation Comments CREATINE KINASE 110 Unit/L 26-192 N (CK) (test code = CK) TROPONIN-I (test < 0.015 NG/ML 0.000-0.045 N Negative: </= 0.045 code = TROPI) Positive: >/= 0.046 Correlation wit h serial results, other cardiac markers , and clinical findin gs is necessary to de termine the clinical significance of this result. Quantit ative results using different methodologies s hould not be compared to one another as nume rical results may mireille yby method. NT PRO-BRAIN NATRIURETIC [id number] 20:14:00 Test Item Value Reference Range Interpretation Comments NT PRO-BRAIN NATRIURETIC PEPTI (test 94 PG/ML 0-100 N code = PROBNP) CBC W/AUTO [id number] 20:14:00 Test Item Value Reference Range Interpretation Comments WHITE BLOOD CELL (test code = WBC) 7.2 K/mm3 3.5-11.0 N RED BLOOD CELL (test code = RBC) 4.15 M/mm3 4.70-6.10 L HEMOGLOBIN (test code = HGB) 12.8 G/DL 10.4-14.9 N HEMATOCRIT (test code = HCT) 39.5 % 31.5-44.1 N MEAN CELL VOLUME (test code = MCV) 95.2 Fl 84.5-98.6 N MEAN CELL HGB (test code = MCH) 30.8 pg 27.0-34.2 N MEAN CELL HGB CONCETRATION (test 32.4 G/DL 31.5-34.0 N code = MCHC) RED CELL DISTRIBUTION WIDTH (test SD 11.5-14.5 N code = RDW) PLATELET COUNT (test code = PLT) 253 K/mm3 150-450 N MEAN PLATELET VOLUME (test code = fL 7.0-10.5 N MPV) NEUTROPHIL % (test code = NT%) % 40-76 H IMMATURE GRANULOCYTE % (test code % 0.0-5.0 N = IG%) LYMPHOCYTE % (test code = LY%) % 20.5-51.1 L MONOCYTE % (test code = MO%) % 1.7-9.3 N EOSINOPHIL % (test code = EO%) % 0.0-6.0 N BASOPHIL % (test code = BA%) % 0.0-2.0 N NUCLEATED RBC % (test code = /100WBC% 0.0-1.0 N NRBC%) NEUTROPHIL # (test code = NT#) K/mm3 1.8-7.6 N IMMATURE GRANULOCYTE # (test code x10 3/uL 0.00-0.03 N = IG#) LYMPHOCYTE # (test code = LY#) K/mm3 0.6-3.2 L MONOCYTE # (test code = MO#) K/mm3 0.3-1.1 N EOSINOPHIL # (test code = EO#) K/mm3 0.0-0.4 N BASOPHIL # (test code = BA#) K/mm3 0.0-0.1 N NUCLEATED RBC # (test code = K/mm3 0.0-0.1 N NRBC#) MANUAL DIFF REQUIRED (test code = DIFF/SCN CRITERIA MDIFF) - XR CHEST 2 [id number] 19:16:00 [facility] : 1955 Sex: F Name: XIOMARA BUTT [place] : 1955ge/S: 64 / F [address] [address] Unit #: [id number] Loc: [place] [address] Phys: Saud Vargas DO Acct: [id number] Dis Date: Status: PRE ER PHONE#: [phone] Exam Date: 10/13/20201856 FAX #: Reason: asthma exacerbation EXAMS: CPT: [id number] XR CHEST 2 V 08696 Fluoro Time: DAP (Gy m2): Air Kerma (mGy): HISTORY: Asthma exacerbation Location: C3 COMPARISON:10/27/2019 FINDINGS: Volume loss in right hemithorax is demonstrated with right hilar prominence. No left-sided consolidation. No pneumothorax. IMPRESSION: 1. Volume loss involving the right hemithorax with prominence of the right hilum and suprahilar region. Findings are most compatible with hilar mass with progressive obstruction. If clinically indicated contrast enhanced CT could be performed for further characterization and direct comparison the prior CT dated 10/21/2019. at 1916 Reported and signed by: Bismark Rodríguez M.D. CC: Leticia HERNANDEZ; Saud Vargas DO PAGE 1 Signed Report Name: XIOMARA BUTT [place] : 1955 Age/S: 64 / F [address] [address] Unit #: [id number] Loc: [place] [address] Phys: Saud Vargas DO Acct: [id number] Dis Date: Status: PRE ER PHONE #: [phone] Exam Date: 10/13/20201856 FAX #: Reason: asthma exacerbation EXAMS: CPT: [id number] XR CHEST 2 V 09946 Fluoro Time: DAP (Gy m2): Air Kerma (mGy): <Continued> Technologist: Peg Rosen RT(R) Trnscb Date/Time: 10/13/2020 (1915) [email or web address] Orig Print D/T: S: 10/13/2020 (1918) PAGE 2 Signed ReportCBC W/AUTO [id number] 09:06:00 Test Item Value Reference Range Interpretation Comments WHITE BLOOD CELL 12.4 K/mm3 3.5-11.0 H (test code = WBC) RED BLOOD CELL (test 4.28 M/mm3 4.70-6.10 L code = RBC) HEMOGLOBIN (test code 13.2 G/DL 10.4-14.9 N = HGB) HEMATOCRIT (test code 41.5 % 31.5-44.1 N = HCT) MEAN CELL VOLUME 97.0 Fl 84.5-98.6 N (test code = MCV) MEAN CELL HGB (test 30.8 pg 27.0-34.2 N code = MCH) MEAN CELL HGB 31.8 G/DL 31.5-34.0 N CONCETRATION (test code = MCHC) RED CELL DISTRIBUTION 15.6 SD 11.5-14.5 H WIDTH (test code = RDW) PLATELET COUNT (test 230 K/mm3 150-450 N code = PLT) MEAN PLATELET VOLUME 10.00 fL 7.0-10.5 N (test code = MPV) NEUTROPHIL % (test 93.3 % 40-76 H code = NT%) IMMATURE GRANULOCYTE 0.3 % 0.0-5.0 N % (test code = IG%) LYMPHOCYTE % (test 3.6 % 20.5-51.1 L code = LY%) MONOCYTE % (test code 2.7 % 1.7-9.3 N = MO%) EOSINOPHIL % (test 0.0 % 0.0-6.0 N code = EO%) BASOPHIL % (test code 0.1 % 0.0-2.0 N = BA%) NUCLEATED RBC % (test 0.0 /100WBC% 0.0-1.0 N code = NRBC%) NEUTROPHIL # (test 11.5 K/mm3 1.8-7.6 H code = NT#) IMMATURE GRANULOCYTE 0.04 x10 3/uL 0.00-0.03 H # (test code = IG#) LYMPHOCYTE # (test 0.5 K/mm3 0.6-3.2 L code = LY#) MONOCYTE # (test code 0.3 K/mm3 0.3-1.1 N = MO#) EOSINOPHIL # (test 0.0 K/mm3 0.0-0.4 N code = EO#) BASOPHIL # (test code 0.0 K/mm3 0.0-0.1 N = BA#) NUCLEATED RBC # (test 0.0 K/mm3 0.0-0.1 N code = NRBC#) MANUAL DIFF REQUIRED NO DIFF/SCN CRITERIA SLIDE R MAIRAW (test code = MDIFF) CONSISTA NT WITH AUTO DIFFERENTI AL. - XR CHEST 2 V W/AP [id number] 07:33:00 Name: XIOMARA BUTT [facility] : 1955 Age/S: 63 / F [address] [address] Unit #: [id number] Loc: [place] [address] Phys: Gina Silva DO Acct: [id number] Dis Date: Status: ADM IN PHONE #: [phone] Exam Date: 10/27/2019 0625 FAX #: Reason: ca EXAMS: CPT: [id number] XR CHEST 2 V W/AP DOMI 32434 Fluoro Time: DAP (Gy m2): Air Kerma (mGy): EXAMINATION: - XR CHEST 2 V W/AP DOMI. LOCATION: 2. HISTORY: Lung mass, dyspnea, follow-up. COMPARISON: Chest x-ray 10/26/19, chest CT 10/21/19. FINDINGS: Cardiac silhouette/Mediastinal contour: Prominence of cardiac silhouette. Atherosclerotic calcification of aortic arch. Lungs: Large right perihilar airspace opacity with right lung base opacity, unchanged. No pleural effusion. Emphysema. Biapical thickening/scarring. Osseous Structures: Degenerative changes of thoracic spine. IMPRESSION: No significant interval change. at 0733 Reported and signed by: Demario Olivares M.D. CC: Dmitri Day MD; Hingwan Silva DO PAGE 1 Signed Report Name: XIOMARA BUTT : 1955 Age/S: 63 / F [address] [address] Unit #: [id number] Loc: [place] [address] Phys: Gina Silva Acct: [id number] Dis Date: Status: ADM IN PHONE #: [phone] Exam Date: 10/27/2019 0669 FAX #: Reason: ca EXAMS: CPT: [id number] XR CHEST 2 V W/AP DOMI 81412 Fluoro Time: DAP (Gy m2): Air Kerma (mGy): <Continued> Technologist: Abraham Farias RT(R) Trnscb Date/Time: 10/27/2019 (0733) [email or web address] Orig Print D/T: S: 10/27/2019 (0737) PAGE 2 Signed ReportCBC W/AUTO [id number] 07:31:00 Test Item Value Reference Range Interpretation Comments WHITE BLOOD CELL (test code = WBC) 12.4 K/mm3 3.5-11.0 H RED BLOOD CELL (test code = RBC) 4.28 M/mm3 4.70-6.10 L HEMOGLOBIN (test code = HGB) 13.2 G/DL 10.4-14.9 N HEMATOCRIT (test code = HCT) 41.5 % 31.5-44.1 N MEAN CELL VOLUME (test code = MCV) 97.0 Fl 84.5-98.6 N MEAN CELL HGB (test code = MCH) 30.8 pg 27.0-34.2 N MEAN CELL HGB CONCETRATION (test 31.8 G/DL 31.5-34.0 N code = MCHC) RED CELL DISTRIBUTION WIDTH (test SD 11.5-14.5 H code = RDW) PLATELET COUNT (test code = PLT) 230 K/mm3 150-450 N MEAN PLATELET VOLUME (test code = fL 7.0-10.5 N MPV) NEUTROPHIL % (test code = NT%) % 40-76 H IMMATURE GRANULOCYTE % (test code % 0.0-5.0 N = IG%) LYMPHOCYTE % (test code = LY%) % 20.5-51.1 L MONOCYTE % (test code = MO%) % 1.7-9.3 N EOSINOPHIL % (test code = EO%) % 0.0-6.0 N BASOPHIL % (test code = BA%) % 0.0-2.0 N NUCLEATED RBC % (test code = /100WBC% 0.0-1.0 N NRBC%) NEUTROPHIL # (test code = NT#) K/mm3 1.8-7.6 H IMMATURE GRANULOCYTE # (test code x10 3/uL 0.00-0.03 H = IG#) LYMPHOCYTE # (test code = LY#) K/mm3 0.6-3.2 L MONOCYTE # (test code = MO#) K/mm3 0.3-1.1 N EOSINOPHIL # (test code = EO#) K/mm3 0.0-0.4 N BASOPHIL # (test code = BA#) K/mm3 0.0-0.1 N NUCLEATED RBC # (test code = K/mm3 0.0-0.1 N NRBC#) MANUAL DIFF REQUIRED (test code = DIFF/SCN CRITERIA MDIFF) BASIC METABOLIC [id number] 07:08:00 Test Item Value Reference Range Interpretation Comments SODIUM (test code = NA) 141 mmol/L 134-147 N POTASSIUM (test code = 4.2 mmol/L 3.4-5.0 N K) CHLORIDE (test code = 109 mmol/L 100-108 H CL) CARBON DIOXIDE (test 27 mmol/L 21-32 N code = CO2) ANION GAP (test code = 5.0 GAP calc 4.0-15.0 N GAP) GLUCOSE (test code = 108 MG/DL 70-110 N GLU) BLOOD UREA NITROGEN 24 MG/DL 7-18 H (test code = BUN) GLOMERULAR FILTRATION >=60 max estimate >60 RATE (test code = GFR) estGFR CREATININE (test code = 0.7 MG/DL 0.6-1.0 N CREAT) CALCIUM (test code = CA) 9.1 MG/DL 8.5-10.1 N CBC W/AUTO [id number] 17:00:00 Test Item Value Reference Range Interpretation Comments WHITE BLOOD CELL 12.4 K/mm3 3.5-11.0 H (test code = WBC) RED BLOOD CELL (test 4.27 M/mm3 4.70-6.10 L code = RBC) HEMOGLOBIN (test code 13.5 G/DL 10.4-14.9 N = HGB) HEMATOCRIT (test code 41.4 % 31.5-44.1 N = HCT) MEAN CELL VOLUME 97.0 Fl 84.5-98.6 N (test code = MCV) MEAN CELL HGB (test 31.6 pg 27.0-34.2 N code = MCH) MEAN CELL HGB 32.6 G/DL 31.5-34.0 N CONCETRATION (test code = MCHC) RED CELL DISTRIBUTION 15.4 SD 11.5-14.5 H WIDTH (test code = RDW) PLATELET COUNT (test 221 K/mm3 150-450 N code = PLT) MEAN PLATELET VOLUME 9.30 fL 7.0-10.5 N (test code = MPV) NEUTROPHIL % (test 93.0 % 40-76 H code = NT%) IMMATURE GRANULOCYTE 0.4 % 0.0-5.0 N % (test code = IG%) LYMPHOCYTE % (test 2.8 % 20.5-51.1 L code = LY%) MONOCYTE % (test code 3.7 % 1.7-9.3 N = MO%) EOSINOPHIL % (test 0.0 % 0.0-6.0 N code = EO%) BASOPHIL % (test code 0.1 % 0.0-2.0 N = BA%) NUCLEATED RBC % (test 0.0 /100WBC% 0.0-1.0 N code = NRBC%) NEUTROPHIL # (test 11.5 K/mm3 1.8-7.6 H code = NT#) IMMATURE GRANULOCYTE 0.05 x10 3/uL 0.00-0.03 H # (test code = IG#) LYMPHOCYTE # (test 0.4 K/mm3 0.6-3.2 L code = LY#) MONOCYTE # (test code 0.5 K/mm3 0.3-1.1 N = MO#) EOSINOPHIL # (test 0.0 K/mm3 0.0-0.4 N code = EO#) BASOPHIL # (test code 0.0 K/mm3 0.0-0.1 N = BA#) NUCLEATED RBC # (test 0.0 K/mm3 0.0-0.1 N code = NRBC#) MANUAL DIFF REQUIRED NO DIFF/SCN CRITERIA SLIDE R EVIEW (test code = MDIFF) CONSISTA NT WITH AUTO DIFFERENTI AL. - XR CHEST 1 [id number] 16:58:00 Name: XIOMARA BUTT [place] : 1955 Age/S: 63 / F [address] [address] Unit #: [id number] Loc: [place] [address] Phys: Gill,Norma IMAN Acct: [id number] Dis Date: Status: ADM IN PHONE #: [phone] Exam Date: 10/26/2019 165 FAX #: Reason: f/u EXAMS: CPT: [id number] XR CHEST 1 V 18827 Fluoro Time: DAP (Gy m2): Air Kerma (mGy): EXAMINATION: - XR CHEST 1 V. LOCATION: B2. HISTORY: f/u. COMPARISON: Radiograph dated 10/25/2019. TECHNIQUE: Single AP view of the chest was obtained. FINDINGS: Patient is rotated to the right. The heart is normal in size. Right hilar mass is again noted with hazy opacification of the right hemithorax. Mild discoid atelectasis is seen in the left lung base. No acute osseous abnormality is identified. IMPRESSION: Right hilarmass with hazy opacification of the right hemithorax, which may be secondary to atelectasis,infiltrates, and/or layering pleural fluid. Mild discoid atelectasis in the left lung base. at 1658 Reported and signed by: Sandra Arana M.D. CC: Dmitri Day MD; Martha Gill PAGE 1 Signed Report Name: XIOMARA BUTT [place] : 1955 Age/S: 63 / F [address] [address] Unit #: [id number] Loc: [place] [address] Phys: Martha Gill IMAN Acct: [id number] Dis Date: Status: ADM IN PHONE #: [phone] Exam Date: 10/26/2019 1653 FAX #: Reason: f/u EXAMS: CPT: [id number] XR CHEST 1 V 76541 Fluoro Time: DAP (Gy m2): Air Kerma (mGy): <Continued> Technologist: Lesvia Wylie RT(R)(CT); ... Trnscb Date/Time: 10/26/2019 (8358) [email or web address] Orig Print D/T: S: 10/26/2019 (3921) PAGE 2 Signed Report BASIC METABOLIC [id number] 16:31:00 Test Item Value Reference Range Interpretation Comments SODIUM (test code = NA) 140 mmol/L 134-147 N POTASSIUM (test code = 4.1 mmol/L 3.4-5.0 N K) CHLORIDE (test code = 108 mmol/L 100-108 N CL) CARBON DIOXIDE (test 28 mmol/L 21-32 N code = CO2) ANION GAP (test code = 4.0 GAP calc 4.0-15.0 N GAP) GLUCOSE (test code = 113 MG/DL 70-110 H GLU) BLOOD UREA NITROGEN 23 MG/DL 7-18 H (test code = BUN) GLOMERULAR FILTRATION >=60 max estimate >60 RATE (test code = GFR) estGFR CREATININE (test code = 0.8 MG/DL 0.6-1.0 N CREAT) CALCIUM (test code = CA) 9.4 MG/DL 8.5-10.1 N CBC W/AUTO [id number] 16:21:00 Test Item Value Reference Range Interpretation Comments WHITE BLOOD CELL (test code = WBC) 12.4 K/mm3 3.5-11.0 H RED BLOOD CELL (test code = RBC) 4.27 M/mm3 4.70-6.10 L HEMOGLOBIN (test code = HGB) 13.5 G/DL 10.4-14.9 N HEMATOCRIT (test code = HCT) 41.4 % 31.5-44.1 N MEAN CELL VOLUME (test code = MCV) 97.0 Fl 84.5-98.6 N MEAN CELL HGB (test code = MCH) 31.6 pg 27.0-34.2 N MEAN CELL HGB CONCETRATION (test 32.6 G/DL 31.5-34.0 N code = MCHC) RED CELL DISTRIBUTION WIDTH (test SD 11.5-14.5 H code = RDW) PLATELET COUNT (test code = PLT) 221 K/mm3 150-450 N MEAN PLATELET VOLUME (test code = fL 7.0-10.5 N MPV) NEUTROPHIL % (test code = NT%) % 40-76 H IMMATURE GRANULOCYTE % (test code % 0.0-5.0 N = IG%) LYMPHOCYTE % (test code = LY%) % 20.5-51.1 L MONOCYTE % (test code = MO%) % 1.7-9.3 N EOSINOPHIL % (test code = EO%) % 0.0-6.0 N BASOPHIL % (test code = BA%) % 0.0-2.0 N NUCLEATED RBC % (test code = /100WBC% 0.0-1.0 N NRBC%) NEUTROPHIL # (test code = NT#) K/mm3 1.8-7.6 H IMMATURE GRANULOCYTE # (test code x10 3/uL 0.00-0.03 H = IG#) LYMPHOCYTE # (test code = LY#) K/mm3 0.6-3.2 L MONOCYTE # (test code = MO#) K/mm3 0.3-1.1 N EOSINOPHIL # (test code = EO#) K/mm3 0.0-0.4 N BASOPHIL # (test code = BA#) K/mm3 0.0-0.1 N NUCLEATED RBC # (test code = K/mm3 0.0-0.1 N NRBC#) MANUAL DIFF REQUIRED (test code = DIFF/SCN CRITERIA MDIFF) [id number] 16:09:00 RUN DATE: 10/25/19 [facility] PAGE 1 RUN TIME: 1609 Specimen Inquiry RUN USER: INTERFACE PATIENT: XIOMARA BUTT LOC: [place] U #: [id number] AGE/SX: 63/F ROOM: [facility] RE10/21/19REG DR: Dmitri Day MD : 57 BED: 1 DIS: STATUS: ADM IN TLOC: SPEC #: [id number] RECD: 10/23/19 STATUS: ULISSES REQ #: [id number] BRENT: 10/22/19 [facility] DR: Dmitri Day MD ENTERED: 10/23/19 SP TYPE: SURG OTHR DR: No Primary or Family Physician Self Referred Chilo Nevarez MD, Sonal MDORDERED: SURG PATH LVL 4 COPIES TO: No Primary or Family [place]ician [place] [address] [place] [address] [email or web address] Chilo Nevarez MD [address] [place] [address] [place], [place] [id number] [place] [address] [facility] [address] [place] [address] HISTOLOGY: TISSUE ID BLK PCS ELGIN LEV PROCEDURE DISPOSITION ____ ___ ___ ___ BRONCHUS, NOS A 1 2 PROCEDURES: SURG PATH LVL 4 (10/23/19) TISSUES: A. BRONCHUS, NOS - RIGHT MAINSTEM BRONCHUS CLINICAL HISTORY PNA, LUNG MASS CONTINUED ON NEXT PAGE RUN DATE: 10/25/19 [facility] PAGE 2 RUN TIME: 1609 Specimen Inquiry RUN USER: INTERFACE SPEC #: [id number] PATIENT: XIOMARA BUTT #[id number] (Continued) CPT CODES CPT CODE(S): 85849 , , , , , , FINAL DIAGNOSIS Bronchus, right mainstem, biopsy: INVASIVE SQUAMOUS CELL CARCINOMA GROSS DESCRIPTION Right mainstem bronchus. Received in aqueous solution (not formalin) are multiple fragments of pink-rai softtissue, 0.1 - 0.3 cm (0.7 x 0.6 x 0.3 cm in aggregate). The specimen is filtered in a teabag and entirely submitted following fixation labeled A. ba/nr Grossing performed at [facility] Pathology, [facility], [address], [place] [address]. [employer]: Jeff Hart M.D. MICROSCOPIC DESCRIPTION Right mainstem bronchus. Sections demonstrate lung parenchyma withan atypical infiltrate cell population. A subpopulation demonstrates an admixture of small bluecells with scant cytoplasm. Larger cells with acidophilic cytoplasm also identified. Focal areasof squamous-like features are identified. Immunostains to chemistry demonstrates these cells are strongly positive for CK 5/6, and negative for TTF-1, CK 7, synaptophysin, and chromogranin. These findings are diagnostic of a squamous cell carcinoma. The presence of areas with small cells and scant cytoplasm are suggestive of basaloid features, however clinical correlation with excisionalspecimen is recommended. The immunohistochemistry techincal and professional component wasperformed at: [facility]. See list of stains below: TTF-1, CK 5/6, CK 7, synaptophysin, chromogranin cpt: 20596, 42649b3 Signed SIGNATURE ON FILE LenDouglas M 10/25/19 1609 END OF REPORT [id number] 16:08:00 RUN DATE: 10/25/19 [facility] Luis [place] - LAB PAGE 1 RUN TIME: 1609 Specimen Inquiry RUN USER: INTERFACE PATIENT: XIOMARA BUTT LOC: [place] U #: [id number] AGE/SX: 63/F ROOM: [facility] RE10/21/19[facility] DR: Dmitri Day MD : 57 BED: 1 DIS: STATUS: ADM IN TLOC: SPEC #: [id number] RECD: 10/24/19 STATUS: ULISSES REQ #: [id number] BRENT: 10/24/[address]: Dmitri Day MD ENTERED: 10/24/19 SP TYPE: SURG OTHR DR: No Primary or Family Physician Self Referred Chilo Nevarez MD, Sonal MDORDERED: SURG PATH LVL 4 COPIES TO: No Primary or Family [place] [address] [place], [place] [email or web address] Chilo Nevarez MD [address] [facility] [address] [place], [place] [address] [place] [address] [facility] [address] [place], [place] [id number] HISTOLOGY: TISSUE ID BLK PCS ELGIN LEV PROCEDURE DISPOSITION ____ ___ ___ ___ BRONCHUS, NOS A 1 2 PROCEDURES: SURG PATH LVL 4 (10/24/19-141) TISSUES: A. BRONCHUS, NOS - RIGHT MAIN BRONCHUS CLINICAL HISTORY PNA, LUNG MASS CONTINUED ON NEXT PAGE RUN DATE: 10/25/19 [facility] PAGE 2 RUN TIME: 1609 Specimen Inquiry RUN USER: INTERFACE SPEC #: [facility]:[id number] PATIENT: XIOMARA BUTT #[id number] (Continued) CPT CODES CPT CODE(S): 37412 , , , , , , FINAL DIAGNOSIS Bronchus, right main, biopsy: INVASIVE SQUAMOUS CELL CARCINOMA GROSS DESCRIPTION Right main bronchus. Received in aqueous solution (not formalin) are irregular fragments of rai-red soft tissue admixed with dark brown blood clots, 1.5 x 0.8 x 0.3 cm in aggregate. The entire specimen submitted following fixation labeled A. ba/nr Grossing performed at [facility] Pathology, [address] [place] [address], [address], [place], [place] [address]. [employer]: Jeff Hart M.D. MICROSCOPIC DESCRIPTION Right main bronchus. Sections demonstrate lung parenchyma with atypical cell population. The cells demonstrate an admixture of small blue cells with order polygonal cells with his Zanaflex cytoplasm. Focal areas of squamous features are identified. Morphologically this tumor is similar to the previous sample (S-662). These findings are consistent with the previous diagnosis of invasive squamous cell carcinoma. Signed SIGNATURE ON FILE Douglas Harrington 10/25/19 1608 END OF REPORT [id number] 16:08:00 Test Item Value Reference Range Interpretation Comments SURG (test code = SURG) --RUN DATE: 01/10/20 [facility] PAGE 1 RUN TIME: 1451 Specimen Inquiry RUN USER: INTERFACE --PATIENT: XIOMARA BUTT LOC: [place] #: [id number] AGE/SX: 63/F ROOM: [facility] RE10/21/19REG DR: Dmitri Day MD : 57 BED: 1 DIS: 10/27/19 STATUS: DIS IN TLOC: -- SPEC #: [id number] RECD: 10/24/19 STATUS: ULISSES REQ #: [id number] BRENT: 10/24/[address]: Dmitri Day MD ENTERED: 10/24/19 SP TYPE: SURG OTHR DR: No Primary or Family Physician Self Referred Chilo Nevarez MD, Sonal MDORDERED: SURG PATH LVL 4 COPIES TO: No Primary or Family [place] [address] [facility] [place] [address] [email or web address] [email or web address] Nevarez MD [address] [facility] [address] [place] [address] [place] [address] [facility] [address] [place] [address] HISTOLOGY: TISSUE ID BLK PCS ELGIN LEV PROCEDURE DISPOSITION ____ ___ ___ ___ BRONCHUS, NOS A 1 2 PROCEDURES: SURG PATH LVL 4 (10/24/19-1416) TISSUES: A. BRONCHUS, NOS - RIGHT MAIN BRONCHUS ADDENDUM FINDINGS Addendum #1 Entered: 12/31/19-1003 NEOGENOMICS - Histology Analysis PD-L1 22C3 FDA (KEYTRUDA ) for NSCLC CONTINUED ON NEXT PAGE --RUN DATE: 01/10/20 [facility] PAGE 2 RUN TIME: 1451 Specimen Inquiry RUN USER: INTERFACE --SPEC #: [facility]:[id number] PATIENT: DAQUANXIOMARA #[id number] (Continued) ADDENDUM FINDINGS (Continued) Results PD-L1 22C3 FDA (KEYTRUDA ) for NSCLC: EXPRESSED Tumor Proportion Score: 5% Intensity: 2+ Intended Use: Stains were scored by a pathologist using manual microscopy. All controls were reviewed and showed appropriate positive and negative immunoreactivity. PD-L1 22C3 FDA (KEYTRUDA ) for NSCLC: PD-L1 IHC 22C3 pharmDx is a qualitative immunohistochemical assay using Monoclonal Mouse Anti-PD-L1, Clone 22C3 intended for use in the detection of PD-L1 protein in formalin-fixed, paraffin-embedded (FFPE) non-small cell lung cancer (NSCLC) tissue using EnVision FLEX visualization system on [employer] Link 48. PD-L1 IHC 22C3 pharmDx is indicated as an aid in identifying NSCLC patients for treatment with KEYTRUDA (pembrolizumab). The performance characteristics of this assay have not been validated for decalcified specimens. Results should be interpreted with caution given the likelihood of false negativity on decalcified specimens. PDL1,22C3 pharmDx kit (package insert). Use of this test in an off-label manner invalidates the FDA approval for the test. [employer], [address] [place] [place] [address]; [id number] p. 15. Methodology: PD-L1 22C3 FDA (KEYTRUDA ) for NSCLC: PD-L1 staining was performed utilizing the [employer] FDA-approved PD-L1, 22C3 pharmDx protocol using the [employer] Link 48 platform. Following incubation with the primary monoclonal antibody to PD-L1, specimens were incubated with a Linker antibody specific to the host species of the primary antibody, and then were incubated with a zvxem-sd-usu visualization reagent consisting of secondary antibody molecules and horseradish peroxidase molecules coupled to a dextran polymer backbone. PD-L1 protein expression is determined by using Tumor Proportion Score (TPS), which is the percentage of viable tumor cells showing partial or complete membrane staining at any intensity. The specimen should be considered to have PD-L1 expression if TPS >/=1% and no expression if TPS < 1%. Stain CPT Code Quantity PD-L1 22C3 FDA (KEYTRUDA ) for NSCLC 63492 1 Electronic Signature Rinku Kumar M.D., The Technical Component Processing, Analysis and Professional Component of this test was completed at [facility] [place], [address] [place] [address], [place] / [address] / [phone] / [place] #[id number] / [employer]): Catina Ferguson M.D. CONTINUED ON NEXT PAGE --RUN DATE: 01/10/20 [facility] PAGE 3 RUN TIME: 1 Specimen Inquiry RUN USER: INTERFACE --SPEC #: [facility]:[id number] PATIENT: XIOMARA BUTT #[id number] (Continued) ADDENDUM FINDINGS (Continued) The performance characteristics of the IHC/TRINY assays have been validated on formalin-fixed paraffin embedded tissues only. This laboratory is certified under the Clinical Laboratory Improvement Amendments of 1988 ("CLIA") as qualified to perform high complexity clinical laboratory testing. For the classifications of IHC antibodies, please contact the Client Services team. Images that may be included within this report are parts representative of the patient but not all testing in its entirety and should not be used to render a result. The CPT codes provided with our test descriptions are based on AMA guidelines and are for informational purposes only. Correct CPT coding is the sole responsibility of the billing democrat. Please direct any questions regarding coding to the payer being billed. Addendum Signed SIGNATURE ON FILE Douglas Harrington 01/10/20 1450 -- CLINICAL HISTORY PNA, LUNG MASS CPT CODES CPT CODE(S): 98304 , , , , , , FINAL DIAGNOSIS Bronchus, right main, biopsy: INVASIVE SQUAMOUS CELL CARCINOMA GROSS DESCRIPTION Right main bronchus. Received in aqueous solution (not formalin) are irregular fragments of rai-red soft tissue admixed with dark brown blood clots, 1.5 x 0.8 x 0.3 cm in aggregate. The entire specimen submitted following fixation labeled A. ba/nr Grossing performed at [facility] Pathology, [address] [place] [address], [address], [place] [address]. [employer]: Jeff Hart M.D. CONTINUED ON NEXT PAGE --RUN DATE: 01/10/20 [facility] PAGE 4 RUN TIME: 1450 Specimen Inquiry RUN USER: INTERFACE --SPEC #: [facility]:[id number] PATIENT: CHAYA BUTTLAINA #[id number] (Continued) MICROSCOPIC DESCRIPTION Right main bronchus. Sections demonstrate lung parenchyma with atypical cell population. The cells demonstrate an admixture of small blue cells with order polygonal cells with his Zanaflex cytoplasm. Focal areas of squamous features are identified. Morphologically this tumor is similar to the previous sample ([id number]). These findings are consistent with the previous diagnosis of invasive squamous cell carcinoma. Signed SIGNATURE ON FILE Douglas Harrington 10/25/19 1608 -- END OF REPORT - XR CHEST 1 [id number] 07:41:00 Name: XIOMARA BUTT Formerly [facility] : 1955 Age/S: 63 / F [address] [place] Unit #: [id number] Loc: Megan [place] [address] Phys: Sen Chew MD Acct: [id number] Dis Date: Status: ADM IN PHONE #: [phone] Exam Date: 10/25/2019 7453 FAX #: Reason: SOB EXAMS: CPT: [id number] XR CHEST 1 V 09885 Fluoro Time: DAP (Gy m2): Air Kerma (mGy): HISTORY: Lung mass Location: C3 COMPARISON:10/24/2019 FINDINGS: There is been partial reexpansion of right lung with continued significant opacification of the right hemithorax compatible with large central obstructing lesion with areas of postobstructive pneumonia. No pneumothorax. No other changes. IMPRESSION: 1. Interval resolution ofcomplete collapse of the right lung with persistent opacity throughout the right hemithorax. Electronically Signed by Ignacio Rodríguez on at 0741 Reported and signed by: Bismark Rodríguez M.D. CC: Sen Chew MD; Dmitri Day MD PAGE 1 Signed Report Name: XIOMARA BUTT [place] : 1955 Age/S: 63 / F [address] [place] Unit #: [id number] Loc: [place] [address] Phys: Sen Chew MD Acct: [id number] Dis Date: Status: ADM IN PHONE #: [phone] Exam Date: 10/25/2019 0652 FAX #: Reason: SOB EXAMS: CPT: [id number] XR CHEST 1 V 56258 Fluoro Time: DAP (Gy m2): Air Kerma (mGy): <Continued> Technologist: Abraham Farias RT(R) Trnscb Date/Time: 10/25/2019 (0741) [email or web address] Orig Print D/T: S: 10/25/2019 (0744) PAGE 2 Signed Report- XR CHEST 1 [id number] 14:49:00 Name: XIOMARA BUTT [place] : 1955 Age/S: 63 / F [address] [place] Unit #: [id number] Loc: [place] [address] Phys: Sen Chew MD Acct: [id number] Dis Date: Status: ADM IN PHONE #: [phone] Exam Date: 10/24/2019 1441 FAX #: Reason: post bronch EXAMS: CPT: [id number] XR CHEST 1 V 05772 Fluoro Time: DAP (Gy m2): Air Kerma (mGy): HISTORY: Bronchoscopy Location:C3 COMPARISON:10/21/2019 FINDINGS: Since prior exam there has been complete opacification of the right hemithorax compatible central obstruction. This has significantly progressed since prior study. Left lung remains clear. No pneumothorax. IMPRESSION: 1. Volume loss throughout the right hemithorax with development of complete opacification palpable with right lung atelectasis from central obstruction. at 1449 Reported and signed by: Bismark Rodríguez M.D. CC: Sen Chew MD; Dmitri Day MD PAGE 1 Signed Report Name: XIOMARA BUTT Formerly [facility] : 1955 Age/S: 63 / F [address] [place] Unit #: [id number] Loc: [place] [address] Phys: Sen Chew MD Acct: [id number] Dis Date: Status: ADM IN PHONE #: [phone] Exam Date: 10/24/2019 1441 FAX #: Reason: post bronch EXAMS: CPT: [id number] XR CHEST 1 V 76528 Fluoro Time: DAP (Gy m2): Air Kerma (mGy): <Continued> Technologist: Viridiana Back, RT(R) Trnscb Date/Time: 10/24/2019 (1449) [email or web address] Orig Print D/T: S: 10/24/2019 (2932) PAGE 2 Signed ReportAG [id number] 08:15:00 Test Item Value Reference Interpretation Comments Range AG CARCINOEMBRYONIC 5.7 ng/mL 0.0-4.7 A (test code = CEA) Nonsmokers <3.9 Smokers <5.6[employer] Electrochemilum inescence Immunoassay(ECL IA)Values obtained with d ifferent assay methods o r kitscannot be used interch angeably. Results cannot beinterpreted as absolute yue dence of the presence orabse nce of malignant disea se.Performed At: [facility] [address] [place], [place] [id number] Kyle L MD Ph:[phone] - CT ABD PELVIS W/[id number] 18:16:00 Name: XIOMARA BUTT [place] : 1955 Age/S: 63 / F [address] [place] Unit #: [id number] Loc: [place] [address] Phys: Pao Christensen MD Acct: [id number] Dis Date: Status: ADM IN PHONE #: [phone] Exam Date: 10/23/2019 1758 FAX #: Reason: LUNG CA EXAMS: CPT: [id number] CT ABD PELVIS W/CONT 42101 EXAM: - CTABD PELVIS W/CONT LOCATION: C3 INDICATION: 63 years -old Female with LUNG CA TECHNIQUE: Contrast - IV contrast was given. Oral contrast was given Portal venous phase - abdomen and pelvis No delayed phase images were obtained. Reconstructions - coronal and sagittal planes This exam was performed according to our departmental dose-optimization program, which includes automated exposure control, adjustment of the mA and/or kV according to patient size and/or use of iterative reconstruction technique COMPARISON: CT chest 10/21/2019 FINDINGS: Statements: None. Thoracic: Please see recent CT chest. Hepatobiliary: The liver is normal without focal lesion. The gallbladder is normal. No biliary dilation. Pancreas: Normal. Spleen: Normal. Adrenals: Normal. Genitourinary: The kidneys are normal. No evidence of hydronephrosis. Evaluation of the bladder is limited, but no obvious bladder abnormality is present. Gastrointestinal: No bowel obstruction or perienteric inflammation. The appendix is normal. Vascular: Atherosclerotic calcifications are seen within the aorta and branch vessels. Lymphatics: No enlarged lymphnodes by CT size criteria. PAGE 1 Signed Report (CONTINUED) Name: XIOMARA BUTT [place] : 1955 Age/S: 63 / F [address] [place] Unit #: [id number] Loc: [place] [address] Phys: Pao Christensen MD Acct: [id number] Dis Date: Status: ADM IN PHONE #: [phone] Exam Date: 10/23/2019 1751 FAX #: Reason: LUNG CA EXAMS: CPT: [id number] CT ABD PELVIS W/CONT 04487 < Continued> Bones/Soft Tissues: No acute osseous findings. No ventral hernias. Peritoneum/Other: No extraluminal air. No extraluminal fluid. IMPRESSION: 1. No evidence of metastatic disease in the abdomen. at 181 Reported and signed by: PRAHCI GLEASON M.D. CC: Dmitri Day MD; Pao Christensen MD Technologist:Lesvia Wylie RT(R)(CT); Adelfo CTDI: DLP: Trnscb Date/Time: 10/23/2019 (1815) [email or web address] Orig Print D/T: S: 10/23/2019 (1818) PAGE 2 Signed ReportCBC W/AUTO [id number] 08:35:00 Test Item Value Reference Range Interpretation Comments WHITE BLOOD CELL 11.4 K/mm3 3.5-11.0 H (test code = WBC) RED BLOOD CELL (test 4.00 M/mm3 4.70-6.10 L code = RBC) HEMOGLOBIN (test code 12.3 G/DL 10.4-14.9 N = HGB) HEMATOCRIT (test code 38.5 % 31.5-44.1 N = HCT) MEAN CELL VOLUME 96.3 Fl 84.5-98.6 N (test code = MCV) MEAN CELL HGB (test 30.8 pg 27.0-34.2 N code = MCH) MEAN CELL HGB 31.9 G/DL 31.5-34.0 N CONCETRATION (test code = MCHC) RED CELL DISTRIBUTION 15.2 SD 11.5-14.5 H WIDTH (test code = RDW) PLATELET COUNT (test 261 K/mm3 150-450 N code = PLT) MEAN PLATELET VOLUME 9.60 fL 7.0-10.5 N (test code = MPV) NEUTROPHIL % (test 91.1 % 40-76 H code = NT%) IMMATURE GRANULOCYTE 0.5 % 0.0-5.0 N % (test code = IG%) LYMPHOCYTE % (test 3.8 % 20.5-51.1 L code = LY%) MONOCYTE % (test code 4.6 % 1.7-9.3 N = MO%) EOSINOPHIL % (test 0.0 % 0.0-6.0 N code = EO%) BASOPHIL % (test code 0.0 % 0.0-2.0 N = BA%) NUCLEATED RBC % (test 0.0 /100WBC% 0.0-1.0 N code = NRBC%) NEUTROPHIL # (test 10.4 K/mm3 1.8-7.6 H code = NT#) IMMATURE GRANULOCYTE 0.06 x10 3/uL 0.00-0.03 H # (test code = IG#) LYMPHOCYTE # (test 0.4 K/mm3 0.6-3.2 L code = LY#) MONOCYTE # (test code 0.5 K/mm3 0.3-1.1 N = MO#) EOSINOPHIL # (test 0.0 K/mm3 0.0-0.4 N code = EO#) BASOPHIL # (test code 0.0 K/mm3 0.0-0.1 N = BA#) NUCLEATED RBC # (test 0.0 K/mm3 0.0-0.1 N code = NRBC#) MANUAL DIFF REQUIRED NO DIFF/SCN CRITERIA SLIDE R MAIRAW (test code = MDIFF) CONSISTA NT WITH AUTO DIFFERENTI AL. BASIC METABOLIC [id number] 08:22:00 Test Item Value Reference Range Interpretation Comments SODIUM (test code = NA) 138 mmol/L 134-147 N POTASSIUM (test code = 4.4 mmol/L 3.4-5.0 N K) CHLORIDE (test code = 108 mmol/L 100-108 N CL) CARBON DIOXIDE (test 26 mmol/L 21-32 N code = CO2) ANION GAP (test code = 4.0 GAP calc 4.0-15.0 N GAP) GLUCOSE (test code = 100 MG/DL 70-110 N GLU) BLOOD UREA NITROGEN 18 MG/DL 7-18 N (test code = BUN) GLOMERULAR FILTRATION >=60 max estimate >60 RATE (test code = GFR) estGFR CREATININE (test code = 0.6 MG/DL 0.6-1.0 N CREAT) CALCIUM (test code = CA) 8.9 MG/DL 8.5-10.1 N CBC W/AUTO [id number] 08:10:00 Test Item Value Reference Range Interpretation Comments WHITE BLOOD CELL (test code = WBC) 11.4 K/mm3 3.5-11.0 H RED BLOOD CELL (test code = RBC) 4.00 M/mm3 4.70-6.10 L HEMOGLOBIN (test code = HGB) 12.3 G/DL 10.4-14.9 N HEMATOCRIT (test code = HCT) 38.5 % 31.5-44.1 N MEAN CELL VOLUME (test code = MCV) 96.3 Fl 84.5-98.6 N MEAN CELL HGB (test code = MCH) 30.8 pg 27.0-34.2 N MEAN CELL HGB CONCETRATION (test 31.9 G/DL 31.5-34.0 N code = MCHC) RED CELL DISTRIBUTION WIDTH (test SD 11.5-14.5 H code = RDW) PLATELET COUNT (test code = PLT) 261 K/mm3 150-450 N MEAN PLATELET VOLUME (test code = fL 7.0-10.5 N MPV) NEUTROPHIL % (test code = NT%) % 40-76 H IMMATURE GRANULOCYTE % (test code % 0.0-5.0 N = IG%) LYMPHOCYTE % (test code = LY%) % 20.5-51.1 L MONOCYTE % (test code = MO%) % 1.7-9.3 N EOSINOPHIL % (test code = EO%) % 0.0-6.0 N BASOPHIL % (test code = BA%) % 0.0-2.0 N NUCLEATED RBC % (test code = /100WBC% 0.0-1.0 N NRBC%) NEUTROPHIL # (test code = NT#) K/mm3 1.8-7.6 H IMMATURE GRANULOCYTE # (test code x10 3/uL 0.00-0.03 H = IG#) LYMPHOCYTE # (test code = LY#) K/mm3 0.6-3.2 L MONOCYTE # (test code = MO#) K/mm3 0.3-1.1 N EOSINOPHIL # (test code = EO#) K/mm3 0.0-0.4 N BASOPHIL # (test code = BA#) K/mm3 0.0-0.1 N NUCLEATED RBC # (test code = K/mm3 0.0-0.1 N NRBC#) MANUAL DIFF REQUIRED (test code = DIFF/SCN CRITERIA MDIFF) BASIC METABOLIC [id number] 06:38:00 Test Item Value Reference Range Interpretation Comments SODIUM (test code = NA) 142 mmol/L 134-147 N POTASSIUM (test code = 3.9 mmol/L 3.4-5.0 N K) CHLORIDE (test code = 108 mmol/L 100-108 N CL) CARBON DIOXIDE (test 31 mmol/L 21-32 N code = CO2) ANION GAP (test code = 3.0 GAP calc 4.0-15.0 L GAP) GLUCOSE (test code = 93 MG/DL 70-110 N GLU) BLOOD UREA NITROGEN 19 MG/DL 7-18 H (test code = BUN) GLOMERULAR FILTRATION >=60 max estimate >60 RATE (test code = GFR) estGFR CREATININE (test code = 0.6 MG/DL 0.6-1.0 N CREAT) CALCIUM (test code = CA) 9.0 MG/DL 8.5-10.1 N CBC W/AUTO [id number] 06:16:00 Test Item Value Reference Range Interpretation Comments WHITE BLOOD CELL (test code = 11.5 K/mm3 3.5-11.0 H WBC) RED BLOOD CELL (test code = 3.93 M/mm3 4.70-6.10 L RBC) HEMOGLOBIN (test code = HGB) 11.8 G/DL 10.4-14.9 N HEMATOCRIT (test code = HCT) 37.8 % 31.5-44.1 N MEAN CELL VOLUME (test code = 96.2 Fl 84.5-98.6 N MCV) MEAN CELL HGB (test code = MCH) 30.0 pg 27.0-34.2 N MEAN CELL HGB CONCETRATION 31.2 G/DL 31.5-34.0 L (test code = MCHC) RED CELL DISTRIBUTION WIDTH 15.2 SD 11.5-14.5 H (test code = RDW) PLATELET COUNT (test code = 268 K/mm3 150-450 N PLT) MEAN PLATELET VOLUME (test code 8.70 fL 7.0-10.5 N = MPV) NEUTROPHIL % (test code = NT%) 80.9 % 40-76 H IMMATURE GRANULOCYTE % (test 0.5 % 0.0-5.0 N code = IG%) LYMPHOCYTE % (test code = LY%) 8.8 % 20.5-51.1 L MONOCYTE % (test code = MO%) 9.5 % 1.7-9.3 H EOSINOPHIL % (test code = EO%) 0.2 % 0.0-6.0 N BASOPHIL % (test code = BA%) 0.1 % 0.0-2.0 N NUCLEATED RBC % (test code = 0.0 /100WBC% 0.0-1.0 N NRBC%) NEUTROPHIL # (test code = NT#) 9.3 K/mm3 1.8-7.6 H IMMATURE GRANULOCYTE # (test 0.06 x10 3/uL 0.00-0.03 H code = IG#) LYMPHOCYTE # (test code = LY#) 1.0 K/mm3 0.6-3.2 N MONOCYTE # (test code = MO#) 1.1 K/mm3 0.3-1.1 N EOSINOPHIL # (test code = EO#) 0.0 K/mm3 0.0-0.4 N BASOPHIL # (test code = BA#) 0.0 K/mm3 0.0-0.1 N NUCLEATED RBC # (test code = 0.0 K/mm3 0.0-0.1 N NRBC#) MANUAL DIFF REQUIRED (test code NO DIFF/SCN CRITERIA = MDIFF) LIPID PROFILE (CORONARY RISK)2019-10-21 12:34:00 Test Item Value Reference Range Interpretation Comments TRIGLYCERIDES (test code = TRIG) 76 MG/DL 0-150 N CHOLESTEROL (test code = CHOL) 147 MG/DL 133-200 N CHOLESTEROL/HDL RATIO (test code = 2.33 RATIO >0 CHOLHDL) HDL CHOLESTEROL (test code = HDL) 63 MG/DL 40-59 H NON-HDL CHOLESTEROL (test code = 84 mg/dL <130 NHDL) LIPOPROTEIN LDL (test code = LDL) 78 MG/DL 0-129 N LDL/HDL (test code = LDL/HDL) 1.23 Ratio 1.48-3.22 Avg L THYROID STIMULATING [id number] 12:34:00 Test Item Value Reference Range Interpretation Comments THYROID STIMULATING HORMONE 3.650 mcIU/ML 0.340-4.820 N (test code = TSH) NT PRO-BRAIN NATRIURETIC [id number] 11:23:00 Test Item Value Reference Range Interpretation Comments NT PRO-BRAIN NATRIURETIC PEPTI (test 35 PG/ML 0-100 N code = PROBNP) Comment: add to blood in labLACTIC [id number] 08:36:00 Test Item Value Reference Range Interpretation Comments LACTIC ACID (test code = LACT) 0.9 mmol/L 0.4-2.0 N - CT CHEST [id number] 08:33:00 Name: XIOMARA BUTT [facility] : 1955 Age/S: 63 / F [address] [place] Unit #: [id number] Loc: [place] [address] Phys: Juan Bowman MD Acct: [id number] Dis Date: Status: REG ER PHONE #: [phone] Exam Date: 10/21/2019820 FAX #: Reason: lung mass, rule out PE EXAMS: CPT: [id number] CT CHEST W/CONTRAST [address] Site ID: [id number] EXAMINATION: CTA chest. Technique: Axial images with coronal and sagittal reconstructions with MIP technique are performed of chest with angiogram protocol. 100 mL of Isovue- 300 administered intravenously. One or more of the following radiation dose reduction techniques was used: automated exposure control, adjustment of mA and/or KV according to patient size, and/or utilization of iterative reconstruction technique. HISTORY: lung mass, rule out PE. COMPARISON: None. FINDINGS: There is no pulmonary embolism or aortic dissection. 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 There is a soft tissue mass measuring 6.8 x 3.9 x 5.7 cm abutting the infrahilar region on the right side inseparable from right hilar and infrahilar lymph node masses and is associated with compression of the right mainstem bronchus concerning for lung cancer. There is associated right middle lobe and right lower lobe atelectasis or pneumonia. The lungs demonstrate prominent emphysema changes. There are borderline sized left hilar lymph nodes up to 1 cm in size. The heart size is normal. No pericardial or pleural effusion. The thoracic aorta is normal in caliber. No dissection. Sections of the upper abdomen demonstrate degenerative changes in the thoracic spine.IMPRESSION: 1. Central right lung mass compressing the right side mainstem bronchus and confluent with right hilar and infrahilar lymph nodes suggestive of lung cancer. PAGE 1 Signed Report (CONTINUED) Name: XIOMARA BUTT Formerly [facility] : 1955 Age/S: 63 / F [address] [place] Unit #: [id number] Loc: [place] [address] Phys: Juan Segura MD Acct: [id number] Dis Date: Status: REG ER PHONE #: [phone] Exam Date: 10/21/2019820 FAX #: Reason: lung mass, rule out PE EXAMS: CPT: [id number] CT CHEST W/CONTRAST [address] <Continued> 2. No pulmonary embolism. at 0833 Reported and signed by: Riaz Han MD CC: Juan Bowman MD Technologist:Ariel Rowe, RT(R)(CT); .. CTDI: DLP: Trnscb Date/Time: 10/21/2019 (832) t.[email or web address].[email or web address] Orig Print D/T: S: 10/21/2019 (0836) PAGE 2 Signed ReportCOMPREHENSIVE METABOLIC PANEL 2019-10-21 08:00:00 Test Item Value Reference Range Interpretation Comments SODIUM (test code = NA) 140 mmol/L 134-147 N POTASSIUM (test code = 3.6 mmol/L 3.4-5.0 N K) CHLORIDE (test code = 106 mmol/L 100-108 N CL) CARBON DIOXIDE (test 32 mmol/L 21-32 N code = CO2) ANION GAP (test code = 2.0 GAP calc 4.0-15.0 L GAP) GLUCOSE (test code = 74 MG/DL 70-110 N GLU) BLOOD UREA NITROGEN 16 MG/DL 7-18 N (test code = BUN) GLOMERULAR FILTRATION >=60 max estimate >60 RATE (test code = GFR) estGFR CREATININE (test code = 0.8 MG/DL 0.6-1.0 N CREAT) TOTAL PROTEIN (test code 6.8 G/DL 6.4-8.2 N = PROT) ALBUMIN (test code = 3.2 G/DL 3.4-5.0 L ALB) GLOBULIN (test code = 3.6 GM/dL GLOB) ALBUMIN/GLOBULIN RATIO 0.9 RATIO 1.2-2.2 L (test code = A/G) CALCIUM (test code = CA) 8.6 MG/DL 8.5-10.1 N BILIRUBIN TOTAL (test 0.30 MG/DL 0.2-1.2 N code = BILT) SGOT/AST (test code = 10 Unit/L 15-37 L AST) SGPT/ALT (test code = 21 Unit/L 12-78 N ALT) ALKALINE PHOSPHATASE 73 Unit/L 45-117 N TOTAL (test code = ALKP) Completed by Nursing: [id number] 08:00:00 Test Item Value Reference Range Interpretation Comments TROPONIN-I (test < 0.015 NG/ML 0.000-0.045 N Negative: </= 0.045 code = TROPI) Positive: >/= 0.046 Correlation wit h serial results, other cardiac markers, and cl inical findings is nec essary to determine the c linical significance of this result. Quantit ative results using d ifferent methodologies s hould not be compared to one another as nume rical results may mireille yby method. Completed by Nursing: NOCOVID 19 INHOUSE [id number] 07:53:00 Test Item Value Reference Range Interpretation Comments COVID 19 INHOUSE AG NEGATIVE Negative Per manu facturer, (test code = negative result s should [id number]) be treated aspr esumptive and, if inconsi stent with clinical signs andsymptoms or necessary for patient man agement, should betested with an alternative mol ecular assay. Negative resultsdo not preclude SA RS-CoV-2 infection and s hould not be usedas the s ole basis for patient man agement decisions. Neg ative results should be considered in t he context of apatient's r ecent exposures, hist ory, presence of cli nicalsigns and symptoms co nsistent with COVID-19. Emergent procedure? NOCOMPREHENSIVE METABOLIC [id number] 07:53:00 Test Item Value Reference Range Interpretation Comments SODIUM (test code = NA) 140 mmol/L 134-147 N POTASSIUM (test code = K) 3.6 mmol/L 3.4-5.0 N CHLORIDE (test code = CL) 106 mmol/L 100-108 N CARBON DIOXIDE (test code = CO2) 32 mmol/L 21-32 N ANION GAP (test code = GAP) 2.0 GAP calc 4.0-15.0 L GLUCOSE (test code = GLU) 74 MG/DL 70-110 N BLOOD UREA NITROGEN (test code = 16 MG/DL 7-18 N BUN) GLOMERULAR FILTRATION RATE (test estGFR >60 code = GFR) CREATININE (test code = CREAT) MG/DL 0.6-1.0 TOTAL PROTEIN (test code = PROT) G/DL 6.4-8.2 ALBUMIN (test code = ALB) G/DL 3.4-5.0 GLOBULIN (test code = GLOB) GM/dL ALBUMIN/GLOBULIN RATIO (test RATIO 1.2-2.2 code = A/G) CALCIUM (test code = CA) 8.6 MG/DL 8.5-10.1 N BILIRUBIN TOTAL (test code = MG/DL 0.2-1.2 BILT) SGOT/AST (test code = AST) Unit/L 15-37 SGPT/ALT (test code = ALT) Unit/L 12-78 ALKALINE PHOSPHATASE TOTAL (test Unit/L 45-117 code = ALKP) Completed by Nursing: [id number] 07:53:00 Test Item Value Reference Range Interpretation Comments TROPONIN-I (test code = TROPI) NG/ML 0.000-0.045 Completed by Nursing: NO- XR CHEST 1 [id number] 07:40:00 Name: XIOMARA BUTT [facility]ly [facility] : 1955 Age/S: 63 / F [address] [place] Unit #: [id number] Loc: [place] [address] Phys: Juan Bowman MD Acct: [id number] Dis Date: Status: REG ER PHONE #: [phone] Exam Date: 10/21/2019 0782 FAX #: Reason: lung mass, dyspnea EXAMS: CPT: [id number] XR CHEST 1 V 71544 Fluoro Time: DAP (Gy m2): Air Kerma (mGy): EXAM: - XR CHEST 1 V Location code:C3 HISTORY: lung mass, dyspnea COMPARISON: 03/28/2011 FI NDINGS: Single AP view of the chest is provided. The cardiac silhouette and pulmonary vasculature are mildly engorged. Right basilar consolidation is present. The left lung is clear. There is no pneumothorax. IMPRESSION: 1. Right basilar conso lidation concerning for pneumonia is seen. 2. The cardiac silhouette and pulmonary vasculature are mildly engorged. at 0740 Reported and signed by: Enrrique Joyce MD CC: Juan Bowman MD PAGE 1 Signed Report Name: XIOMARA BUTT [place] : 1955 Age/S: 63 / F [address] [address] [place] Unit #: [id number] Loc: [place] [address] Phys: Juan Norton MD Acct: [id number] Dis Date: Status: REG ER PHONE #: [phone] Exam Date: 10/21/2019 07 FAX #: Reason: lung mass, dyspnea EXAMS: CPT: [id number] XR CHEST 1 V 94892 Fluoro Time: DAP (Gy m2): AirKerma (mGy): <Continued> Technologist: Ariel Rowe, RT(R)(CT) Trnscb Date/Time: 10/21/2019 (40) [email or web address].[id number] Orig Print D/T: S: 10/21/2019 (0743) PAGE 2 Signed ReportCBC W/AUTO [id number] 07:32:00 Test Item Value Reference Range Interpretation Comments WHITE BLOOD CELL (test code = 12.1 K/mm3 3.5-11.0 H WBC) RED BLOOD CELL (test code = 4.02 M/mm3 4.70-6.10 L RBC) HEMOGLOBIN (test code = HGB) 12.3 G/DL 10.4-14.9 N HEMATOCRIT (test code = HCT) 38.8 % 31.5-44.1 N MEAN CELL VOLUME (test code = 96.5 Fl 84.5-98.6 N MCV) MEAN CELL HGB (test code = MCH) 30.6 pg 27.0-34.2 N MEAN CELL HGB CONCETRATION 31.7 G/DL 31.5-34.0 N (test code = MCHC) RED CELL DISTRIBUTION WIDTH 15.1 SD 11.5-14.5 H (test code = RDW) PLATELET COUNT (test code = 284 K/mm3 150-450 N PLT) MEAN PLATELET VOLUME (test code 8.80 fL 7.0-10.5 N = MPV) NEUTROPHIL % (test code = NT%) 72.2 % 40-76 N IMMATURE GRANULOCYTE % (test 0.4 % 0.0-5.0 N code = IG%) LYMPHOCYTE % (test code = LY%) 17.9 % 20.5-51.1 L MONOCYTE % (test code = MO%) 8.0 % 1.7-9.3 N EOSINOPHIL % (test code = EO%) 1.3 % 0.0-6.0 N BASOPHIL % (test code = BA%) 0.2 % 0.0-2.0 N NUCLEATED RBC % (test code = 0.0 /100WBC% 0.0-1.0 N NRBC%) NEUTROPHIL # (test code = NT#) 8.8 K/mm3 1.8-7.6 H IMMATURE GRANULOCYTE # (test 0.05 x10 3/uL 0.00-0.03 H code = IG#) LYMPHOCYTE # (test code = LY#) 2.2 K/mm3 0.6-3.2 N MONOCYTE # (test code = MO#) 1.0 K/mm3 0.3-1.1 N EOSINOPHIL # (test code = EO#) 0.2 K/mm3 0.0-0.4 N BASOPHIL # (test code = BA#) 0.0 K/mm3 0.0-0.1 N NUCLEATED RBC # (test code = 0.0 K/mm3 0.0-0.1 N NRBC#) MANUAL DIFF REQUIRED (test code NO DIFF/SCN CRITERIA = MDIFF) THROAT [id number] 12:14:00 Test Item Value Reference Range Interpretation Comments Culture Observations NO BETA HEMOLYTIC (test code = COB1) STREPTOCOCCUS ISOLATED XR CHEST 1 VIEW PORTABLE *OW*2019-02-23 18:21:54LOCATION: H43 EXAM: XR CHEST 1 VIEW PORTABLE *OW*HISTORY: [id number]: Cough TECHNIQUE: Frontal view ofthe chest.COMPARISON: None.FINDINGS:The lungs are well inflated and clear. No evidence of pneumothorax or pleural effusion. The heart is normal in size. Atherosclerotic calcification of the thoracicaorta. Osseous structures are intact. IMPRESSION:No evidence of acute cardiopulmonary disease.DIRECT STREP GROUP AOW2019-02-23 18:18:00 Test Item Value Reference Range Interpretation Comments STREP A AG (test code = STREP) NEGATIVE NEGATIVE INFLUENZA A AND B OW2019-02-23 18:12:00 Test Item Value Reference Range Interpretation Comments INFLUENZ A (test code = INFA) NEGATIVE NEGATIVE INFLUENZ B (test code = INFB) NEGATIVE NEGATIVE
[2021-02-24] MEDS ORDERED: LEVALBUTEROL 1.25 MG/3 ML NEB ONE ×2 (16:36→17:31)
[2021-02-24] MEDS ORDERED: METHYLPREDNISOLONE 125 MG INJ ONE (16:36)
[2021-02-24] MEDS ORDERED: Levofloxacin500mg IV 500 MG/100 ML BAG IV ONE (16:36)
[2021-02-24] MEDS ORDERED: IPRATROPIUM BROM 0.5MG/2.5ML ONE (16:36)
[2021-02-24] MEDS ORDERED: NA CHLORIDE 0.9% 1,000 ML ONE ×2 (16:36→17:31)
[2021-02-24 16:39] LABS: Absolute Lymphocytes (CBC) 0.3 K/uL (0.7-4.9); Lymphocytes % 6.1 % (15.3-44.8); MPV 7.4 fL (7.6-11.3)
[2021-02-24 16:42] LABS: Protime INR 1.42
[2021-02-24 17:01] LABS: Albumin 2.6 g/dL (3.4-5.0); Bilirubin Direct 0.2 mg/dL (0-0.2); Bilirubin Total 0.6 mg/dL (0.2-1.0); Magnesium 1.9 mg/dL (1.8-2.4); Potassium 3.6 mmol/L (3.5-5.1); Protein, Total 6.9 g/dL (6.4-8.2)
[2021-02-24 17:02] LABS: Troponin High Sensitivity 61.1 pg/mL (<58.9)
[2021-02-24 17:14] LABS: Blood Morphology Comment NOT SEEN (NOT SEEN); Platelet Estimate ADEQ; White Blood Cell Scan OK (OK)
--- NOTE | 2021-02-24 17:16 | ER ---
Nurse's Notes [facility] Name: Alex Soto Age: 65 yrs Sex: Female : 1955 Arrival Date: 02/24/2021 Time: 15:37 Bed 17 Private MD: Diagnosis: COPD/chronic obstructive pulmonary disease, unspecified bacterial pneumonia, hypotension, Presentation: 02/24 15:58 Chief complaint: EMS states: hypotension, low O2 Sat while at cancer center - SBP 70 eo2 and SPO2 56% on RA, pt O2 dependent 3lpm but states her portable oxygen was being charged. Pt also with cough x 4 days, COVID positive a few weeks ago, reports quarantining for 14 days and completed the COVID treatment regimen prescribed. PMH:COPD, Lung CA. Coronavirus screen: Vaccine status: Patient reports receiving the 2nd dose of the covid vaccine. Client denies travel out of the [place] in the last 14 days. Client presents with at least one sign or symptom that may indicate coronavirus-19. Standard/surgical mask placed on the client. Provider contacted for isolation considerations. Ebola Screen: Patient negative for fever greater than or equal to 101.5 degrees Fahrenheit, and additional compatible Ebola Virus Disease symptoms Patient denies exposure to infectious person. Patient denies travel to an Ebola-affected area in the 21 days before illness onset. Initial Sepsis Screen: Does the patient meet any 2 criteria? RR > 20 per min. Yes Does the patient have a suspected source of infection? No. Patient's initial sepsis screen is negative. Risk Assessment: Do you want to hurt yourself or someone else? Patient reports no desire to harm self or others. Onset of symptoms is unknown. 15:58 Method Of Arrival: EMS: [facility] eo2 15:58 Acuity: TASHA 2 eo2 Triage Assessment: 16:09 General: Appears in no apparent distress. Behavior is calm, cooperative, anxious. Pain: eo2 Denies pain. Historical: - Allergies: 16:04 No Known Allergies; eo2 - Home Meds: 16:04 cyclobenzaprine 10 mg Oral tab 1 tab as needed [Active]; albuterol sulfate 90 eo2 mcg/actuation Inhl aebs 1 puff every 4 hours [Active]; hydrocodone bitartrate oral [Active]; pantoprazole 40 mg oral TbEC 1 tab once daily [Active]; prednisone 10 mg Oral tab as needed [Active]; ondansetron HCl 4 mg Oral tab 1 tab 4 times per day [Active]; dexamethasone 4 mg Oral tab 2 tabs every 8 hours [Active]; alprazolam 0.5 mg Oral Tb24 1 tab once daily [Active]; - PMHx: 16:04 Anxiety; Bipolar disorder; eo2 16:09 lung cancer; Chronic obstructive lung disease; chemotherapy; eo2 - Immunization history:: Adult Immunizations up to date, Client reports receiving the 2nd dose of the Covid vaccine. - Social history:: Smoking status: Patient/guardian denies using tobacco. - Family history:: not pertinent. Screenin:12 Abuse screen: Denies threats or abuse. Denies injuries from another. Nutritional eo2 screening: No deficits noted. Tuberculosis screening: No symptoms or risk factors identified. Fall Risk None identified. Assessment: 16:12 General: Appears in no apparent distress. Behavior is cooperative, anxious. Pain: eo2 Denies pain. Neuro: No deficits noted. Level of Consciousness is awake, alert, obeys commands, Oriented to person, place, time, situation, Denies dizziness, headache. Cardiovascular: Reports shortness of breath, Denies chest pain, Capillary refill < 3 seconds Patient's skin is warm and dry. Respiratory: Reports shortness of breath cough that is non-productive, labored breathing Airway is patent Respiratory effort is even, unlabored, Respiratory pattern is regular, symmetrical, Breath sounds with rhonchi bilaterally. GI: No deficits noted. No signs and/or symptoms were reported involving the gastrointestinal system. : No deficits noted. No signs and/or symptoms were reported regarding the genitourinary system. 21:10 Reassessment: I recv'd report on the pt \\T\\ [id number]. I agree with the previous assessment. erwin We are trying to have the pt transferred, but haven't found an accepting facility. She is in NAD. . 02/25 00:54 General: The pt is resting and much more calm. She is resting with clear, even breaths erwin on O2. . 06:31 General: Report will be given to the oncoming RN. . erwin 18:57 General: I just recv'd report on the pt and she has a bed upstairs. Pt will be erwin transported paul. Registration will be called and report. . 19:20 General: I called to give report on the pt and have called registration to "flip" the erwin pt. Awaiting to give report. . 19:24 General: Report called to the floor. . erwin Vital Signs: 02/24 15:58 BP 94 / 69; Pulse 116; Resp 22; Temp 98.2; Pulse Ox 96% 4 lpm ; Weight 90.72 kg; Height eo2 5 ft. 9 in. (175.26 cm); Pain 0/10; 16:40 BP 80 / 69; Pulse 112; Resp 22; Pulse Ox 95% 4 lpm ; Pain 0/10; eo2 16:43 BP 90 / 71; Pulse 109; Resp 21; Pulse Ox 99% ; eo2 17:00 BP 103 / 73; Pulse 101; Resp 19; Pulse Ox 98% 4 lpm ; Pain 0/10; ld1 18:00 BP 106 / 81; Pulse 109; Resp 23; Pulse Ox 97% ; ld1 19:00 BP 96 / 72; Pulse 101; Resp 22; Pulse Ox 97% ; Pain 0/10; ld1 21:09 BP 73 / 60; Pulse 100; Resp 24; Temp 98.4; Pulse Ox 98% ; erwin 02/25 00:07 BP 121 / 82; rn 00:08 BP 121 / 82; Pulse 97; Resp 20; erwin 01:00 BP 91 / 66; Pulse 90; Resp 20; Pulse Ox 97% on 2 lpm NC; erwin 02:00 BP 104 / 87; Pulse 88; Resp 22; Pulse Ox 97% on 2 lpm NC; erwin 02:58 BP 93 / 63; Pulse 93; Resp 20; Pulse Ox 97% on 2 lpm NC; erwin 03:35 BP 109 / 79; Pulse 86; Resp 20; Pulse Ox 100% 2 lpm ; erwin 04:04 BP 104 / 79; Pulse 88; Resp 20; Pulse Ox 98% on 2 lpm NC; Pain 0/10; erwin 05:25 BP 121 / 85; Pulse 98; Resp 24; Temp 98.4; Pulse Ox 97% on 3.5 lpm NC; Pain 0/10; erwin 05:59 BP 113 / 80; Pulse 88; Resp 20; Pulse Ox 97% on 3.5 lpm NC; erwin 06:29 BP 117 / 82; Pulse 91; Resp 18; Temp 98.5; Pulse Ox 97% on 3.5 lpm NC; Pain 0/10; erwin 07:35 BP 116 / 92; Pulse 97; Resp 18; Pulse Ox 96% on R/A; candelaria 10:07 BP 120 / 82; Pulse 94; Resp 18; Pulse Ox 97% on 4 lpm NC; candelaria 18:58 BP 113 / 71; Pulse 104; Resp 24; Temp 98.4; Pulse Ox 99% 3.5 lpm ; Pain 0/10; erwin 02/24 15:58 Body Mass Index 29.53 (90.72 kg, 175.26 cm) eo2 ED Course: 02/24 15:37 Patient arrived in ED. ds1 15:50 Yash Sarah MD is Attending Physician. anabela 15:52 Liana Lopez, MITCHELL is Primary Nurse. eo2 16:04 Triage completed. eo2 16:09 Arm band placed on. eo2 16:12 Patient has correct armband on for positive identification. eo2 16:12 No provider procedures requiring assistance completed. eo2 16:20 Inserted saline lock: 20 gauge in left antecubital area, using aseptic technique. Blood eo2 collected. 16:24 XRAY Chest (1 view) In Process Unspecified. EDMS 16:39 computer hardware engineer on. Pulse ox on. NIBP on. Door closed. Noise minimized. Warm blanket eo2 given. 16:39 COVID-19/FLU A+B/RSV (Document "Date of Onset" if Symptomatic) Sent. eo2 17:13 Maynor Curran MD is Hospitalizing Provider. anabela 17:39 CT Chest For PE Angio In Process Unspecified. EDMS 18:50 initiated transfer to [facility]. bd 18:56 pt declined at [facility] due to no covid bed,per Andi. bd 18:58 initiated transfer to [facility]. bd 19:14 Report given to Citlalli MEDRANO. ld1 19:14 Spoke with Carey at [facility], reports they are at capacity. lp1 19:29 Initiated transfer to [facility], complete saturation at all 4 facilities per Lion until lp1 0400 tomorrow. 19:37 Initiated transfer to [facility], per Alycia, no beds at [facility], No Tele beds system wide. lp1 19:46 Initiated transfer to [facility]. lp1 20:[address] Sarah at [facility]. lp1 20:22 Fawn at [facility] reports [facility] at [facility]. lp1 20:40 Fawn at [facility] reports [facility] at capacity. lp1 20:44 Joann at [facility] reports complete ED Saturation. lp1 20:58 Fawn at [facility] reports [facility] does not have specialty. lp1 21:17 Spoke with Fawn at [facility], reports [facility] declines due to no [facility] specialty. 02/25 00:02 Urine Culture Sent. erwin 05:52 Spoke with Carol at [facility], reports all campuses at capacity. lp1 06:05 [address] Mariano at [facility], reports no COVID positive beds. lp1 07:20 Attending Physician role handed off by Yash Sarah MD kdr 07:20 Glenn Ryan MD is Attending Physician. kdr 08:32 initiated trans to [facility],pt denied due to no bed available at [facility]. all [facility] hospitals at bd closure,per Tia. 09:04 initiated transfer to [facility]. bd 09:[address] [facility] due to no beds available, per Tesha. if pt is admitted, we can re bd initiated transfer and pt will be put on wait list for a bed. 11:15 Maynor Curran MD is Hospitalizing Provider. kdr 20:04 IV is patent, is intact, with fluids infusing freely, erwin Administered Medications: 02/24 16:42 Drug: NS 0.9% 1000 ml Route: IV; Rate: 1 bolus; Site: left antecubital; eo2 17:57 Follow up: Response: No adverse reaction; IV Status: Completed infusion; IV Intake: ld1 1000ml 16:48 Drug: levofloxacin 500 mg Volume: 100 ml; Route: IVPB; Infused Over: 60 mins; Site: ld1 left antecubital; 18:53 Follow up: Response: No adverse reaction; IV Status: Completed infusion; IV Intake: ld1 100ml 16:49 Drug: SOLU-Medrol (methylPrednisoLONE) 125 mg Route: IVP; Site: left antecubital; ld1 17:57 Follow up: Response: No adverse reaction ld1 16:49 Drug: Xopenex (levalbuterol) 3.75 mg Route: Inhalation; ld1 18:16 Follow up: Response: No adverse reaction ld1 16:49 Drug: AtroVENT (ipratropium) Aerosol 0.5 mg Route: Inhalation; ld1 18:16 Follow up: Response: No adverse reaction ld1 17:56 Drug: NS 0.9% 1000 ml Route: IV; Rate: 1 bolus; Site: left antecubital; ld1 18:53 Follow up: IV Status: Completed infusion; IV Intake: 1000ml ld1 02/25 02:59 Follow up: Response: No adverse reaction; IV Intake: 1000ml erwin 02/24 17:56 Drug: Aspirin Chewable Tablet 162 mg Route: PO; ld1 18:53 Follow up: Response: No adverse reaction ld1 17:56 Drug: Pepcid (famotidine) 20 mg Route: IVP; Site: left antecubital; ld1 18:52 Follow up: Response: No adverse reaction ld1 17:56 Drug: Xopenex (levalbuterol) 1.25 mg Route: Inhalation; ld1 18:52 Follow up: Response: No adverse reaction ld1 21:00 Drug: Lovenox (enoxaparin) 40 mg Route: Sub-Q; Site: abdomen; erwin 02/25 04:06 Follow up: Response: No adverse reaction erwin 02/24 21:01 Drug: Zosyn (piperacillin-tazobactam) 3.375 grams Route: IVPB; Infused Over: 60 mins; erwin Site: left antecubital; 02/25 04:05 Follow up: Response: No adverse reaction; IV Intake: 100ml erwin 07:35 Follow up: Response: No adverse reaction; IV Status: Completed infusion candelaria 00:17 Not Given (not available in hospitall): SEROquel (QUEtiapine) 25 mg PO once erwin 00:17 Drug: XANax (alprazolam) Tablet 0.5 mg Route: PO; erwin 00:52 Follow up: Response: Anxiety decreased erwin 09:19 Drug: guaiFENesin AC (codeine-guaifenesin) Liquid (10 mg-100 mg/5 mL) 5 ml Route: PO; candelaria 12:34 Follow up: Response: No adverse reaction candelaria 18:12 Follow up: Response: No adverse reaction candelaria 16:20 Drug: XANax (alprazolam) Tablet 0.5 mg Route: PO; candelaria 18:11 Follow up: Response: No adverse reaction candelaria Intake: 02/24 17:57 IV: 1000ml; Total: 1000ml. ld1 18:53 IV: 1000ml; Total: 2000ml. ld1 18:53 IV: 100ml; Total: 2100ml. ld1 02/25 02:59 IV: 1000ml; Total: 3100ml. erwin 04:05 IV: 100ml; Total: 3200ml. erwin Output: 05:28 Urine: 600ml (Voided); Total: 600ml. erwin Outcome: 02/24 17:15 Decision to Hospitalize by Provider. anabela 18:57 ER care complete, transfer ordered by MD. anabela 02/25 04:06 Condition: stable erwin 11:16 Decision to Hospitalize by Provider. kdr 20:03 Admitted to accompanied by nurse, with oxygen. erwin 20:04 Patient left the ED. erwin Signatures: Dispatcher [employer] EDMS Lisa Friedman Corey, MD MD cha Rittger, Kevin, MD MD kdr Sanford, Demi ds1 Quynh Mccurdy, RN RN lp1 Yris Thornton RN RN ld1 Citlalli Tyler RN RN bo Au-StagerBonnie RN Liana Browning RN RN eo2 Corrections: (The following items were deleted from the chart) 02/24 16:11 16:09 PMHx: copd; eo2 eo2 16:12 15:58 Chief complaint: EMS states: hypotension, low O2 Sat while at cancer center - SBP eo2 70 and SPO2 56% on RA, pt O2 dependent 3lpm but states her portable oxygen was being charged. Pt also with cough x 4 days, COVID positive a few weeks ago, reports quarantining for 14 days and completed the COVID treatment regimen prescribed. eo2 16:30 16:12 Respiratory: Reports shortness of breath cough that is non-productive, labored eo2 breathing Airway is patent Respiratory effort is even, unlabored, Respiratory pattern is regular, symmetrical, Breath sounds are diminished bilaterally. eo2 18:54 17:58 Response: No adverse reaction; IV Status: Completed infusion ld1 ld1 19:44 19:24 Spoke with Carey at [facility], reports they are at capacity lp1 lp1 19:44 19:35 Initiated transfer to [facility], complete saturation at all 4 facilities per Lion lp1 until 0400 tomorrow lp1 02/25 02:11 01:00 BP 104 / 87; Pulse 88bpm; Resp 20bpm; Pulse Ox 97% 2 lpm Nasal Cannula; erwin erwin
--- NOTE | 2021-02-24 17:16 | EDPHYS ---
Physician Documentation [facility] Name: Alex Soto Age: 65 yrs Sex: Female : 1955 Arrival Date: 02/24/2021 Time: 15:37 Bed 17 Private MD: ED Physician Glenn Ryan HPI: 02/24 17:05 This 65 yrs old Black Female presents to ER via EMS with complaints of Low BP, LOW O2. anabela 17:05 The patient has shortness of breath at rest, with light activity. Onset: The anabela symptoms/episode began/occurred 2 day(s) ago. Duration: The symptoms are chronic, are continuous, and are steadily getting worse. The patient's shortness of breath has no apparent modifying factors. The patient presents to the emergency department with wheezing, Current therapy: albuterol inhaler, albuterol nebs, that began without any particular precipitating event, the patient was reported to have audible wheezing, chest congestion, non-productive cough, trouble breathing. Modifying factors: The symptoms are alleviated by nothing, the symptoms are aggravated by nothing. copd, lung ca, x 2 days. Associated signs and symptoms: Pertinent positives: non-productive cough. Severity of symptoms: At their worst the symptoms were moderate in the emergency department the symptoms are unchanged. The patient or guardian reports cough, difficulty breathing, flu symptoms, myalgias. Historical: - Allergies: 16:04 No Known Allergies; eo2 - Home Meds: 16:04 cyclobenzaprine 10 mg Oral tab 1 tab as needed [Active]; albuterol sulfate 90 eo2 mcg/actuation Inhl aebs 1 puff every 4 hours [Active]; hydrocodone bitartrate oral [Active]; pantoprazole 40 mg oral TbEC 1 tab once daily [Active]; prednisone 10 mg Oral tab as needed [Active]; ondansetron HCl 4 mg Oral tab 1 tab 4 times per day [Active]; dexamethasone 4 mg Oral tab 2 tabs every 8 hours [Active]; alprazolam 0.5 mg Oral Tb24 1 tab once daily [Active]; - PMHx: 16:04 Anxiety; Bipolar disorder; eo2 16:09 lung cancer; Chronic obstructive lung disease; chemotherapy; eo2 - Immunization history:: Adult Immunizations up to date, Client reports receiving the 2nd dose of the Covid vaccine. - Social history:: Smoking status: Patient/guardian denies using tobacco. - Family history:: not pertinent. ROS: 17:05 Constitutional: Negative for fever, chills, and weight loss, Eyes: Negative for injury, anabela pain, redness, and discharge, ENT: Negative for injury, pain, and discharge, Neck: Negative for injury, pain, and swelling, Abdomen/GI: Negative for abdominal pain, nausea, vomiting, diarrhea, and constipation, Back: Negative for injury and pain, : Negative for injury, bleeding, discharge, and swelling, MS/Extremity: Negative for injury and deformity, Skin: Negative for injury, rash, and discoloration, Neuro: Negative for headache, weakness, numbness, tingling, and seizure, Psych: Negative for depression, anxiety, suicide ideation, homicidal ideation, and hallucinations, Allergy/Immunology: Negative for hives, rash, and allergies, Endocrine: Negative for neck swelling, polydipsia, polyuria, polyphagia, and marked weight changes, Hematologic/Lymphatic: Negative for swollen nodes, abnormal bleeding, and unusual bruising. 17:05 Cardiovascular: Positive for orthopnea, palpitations. 17:05 Respiratory: Positive for cough, shortness of breath, at rest. Exam: 17:05 Constitutional: This is a well developed, well nourished patient who is awake, alert, anabela and in no acute distress. Head/Face: Normocephalic, atraumatic. Eyes: Pupils equal round and reactive to light, extra-ocular motions intact. Lids and lashes normal. Conjunctiva and sclera are non-icteric and not injected. Cornea within normal limits. Periorbital areas with no swelling, redness, or edema. ENT: Nares patent. No nasal discharge, no septal abnormalities noted. Tympanic membranes are normal and external auditory canals are clear. Oropharynx with no redness, swelling, or masses, exudates, or evidence of obstruction, uvula midline. Mucous membranes moist. Neck: Trachea midline, no thyromegaly or masses palpated, and no cervical lymphadenopathy. Supple, full range of motion without nuchal rigidity, or vertebral point tenderness. No Meningismus. Chest/axilla: Normal chest wall appearance and motion. Nontender with no deformity. No lesions are appreciated. Abdomen/GI: Soft, non-tender, with normal bowel sounds. No distension or tympany. No guarding or rebound. No evidence of tenderness throughout. Back: No spinal tenderness. No costovertebral tenderness. Full range of motion. Skin: Warm, dry with normal turgor. Normal color with no rashes, no lesions, and no evidence of cellulitis. MS/ Extremity: Pulses equal, no cyanosis. Neurovascular intact. Full, normal range of motion. Neuro: Awake and alert, GCS 15, oriented to person, place, time, and situation. Cranial nerves II-XII grossly intact. Motor strength 5/5 in all extremities. Sensory grossly intact. Cerebellar exam normal. Normal gait. Psych: Awake, alert, with orientation to person, place and time. Behavior, mood, and affect are within normal limits. 17:05 Cardiovascular: Rate: tachycardic, Rhythm: regular, Pulses: Pulses are 4+ in bilateral radial, brachial, femoral, popliteal, posterior tibial and and dorsalis pedis arteries.. Heart sounds: normal, Edema: is not appreciated, JVD: is not appreciated. 17:05 ECG was reviewed by the Attending Physician. Vital Signs: 15:58 BP 94 / 69; Pulse 116; Resp 22; Temp 98.2; Pulse Ox 96% 4 lpm ; Weight 90.72 kg; Height eo2 5 ft. 9 in. (175.26 cm); Pain 0/10; 16:40 BP 80 / 69; Pulse 112; Resp 22; Pulse Ox 95% 4 lpm ; Pain 0/10; eo2 16:43 BP 90 / 71; Pulse 109; Resp 21; Pulse Ox 99% ; eo2 17:00 BP 103 / 73; Pulse 101; Resp 19; Pulse Ox 98% 4 lpm ; Pain 0/10; ld1 18:00 BP 106 / 81; Pulse 109; Resp 23; Pulse Ox 97% ; ld1 19:00 BP 96 / 72; Pulse 101; Resp 22; Pulse Ox 97% ; Pain 0/10; ld1 21:09 BP 73 / 60; Pulse 100; Resp 24; Temp 98.4; Pulse Ox 98% ; erwin 02/25 00:07 BP 121 / 82; rn 00:08 BP 121 / 82; Pulse 97; Resp 20; erwin 01:00 BP 91 / 66; Pulse 90; Resp 20; Pulse Ox 97% on 2 lpm NC; erwin 02:00 BP 104 / 87; Pulse 88; Resp 22; Pulse Ox 97% on 2 lpm NC; erwin 02:58 BP 93 / 63; Pulse 93; Resp 20; Pulse Ox 97% on 2 lpm NC; erwin 03:35 BP 109 / 79; Pulse 86; Resp 20; Pulse Ox 100% 2 lpm ; erwin 04:04 BP 104 / 79; Pulse 88; Resp 20; Pulse Ox 98% on 2 lpm NC; Pain 0/10; erwin 05:25 BP 121 / 85; Pulse 98; Resp 24; Temp 98.4; Pulse Ox 97% on 3.5 lpm NC; Pain 0/10; erwin 05:59 BP 113 / 80; Pulse 88; Resp 20; Pulse Ox 97% on 3.5 lpm NC; erwin 06:29 BP 117 / 82; Pulse 91; Resp 18; Temp 98.5; Pulse Ox 97% on 3.5 lpm NC; Pain 0/10; erwin 07:35 BP 116 / 92; Pulse 97; Resp 18; Pulse Ox 96% on R/A; candelaria 10:07 BP 120 / 82; Pulse 94; Resp 18; Pulse Ox 97% on 4 lpm NC; candelaria 18:58 BP 113 / 71; Pulse 104; Resp 24; Temp 98.4; Pulse Ox 99% 3.5 lpm ; Pain 0/10; erwin 02/24 15:58 Body Mass Index 29.53 (90.72 kg, 175.26 cm) eo2 MDM: 02/24 15:50 Patient medically screened. anabela 17:11 Differential diagnosis: Bronchitis Chronic Obstructive Pulmonary Disease URI, anabela pneumonia, pulmonary edema, Pulmonary Embolism reactive airway disease. Antibiotic administration: Levaquin given. Differential Diagnosis sepsis, flu, Bronchitis Influenza Upper Respiratory Infection Sinusitis Pharyngitis Allergic Rhinitis Viral Syndrome Pneumonia. The patient's Wells Deep Vein Thrombosis Score was calculated as follows: Heart Rate >100 BPM (1.5 Pts) Malignancy Total Score: 0-2 Pts- Low Risk. The patient's pulmonary embolism risk score was calculated as follows: the patients heart rate is greater than 100 beats per minute (1.5 Pts) malignancy Total Score: 0-2 points. This patient was found to be at low risk for a pulmonary embolism by using the Well's assessment criteria. Immunization status: Influenza vaccine: Data reviewed: vital signs, nurses notes, lab test result(s), EKG, radiologic studies, CT scan, plain films. Data interpreted: home health clinical supervisor: rate is 109 beats/min, Pulse oximetry: on room air is 99 %. Test interpretation: by ED physician or midlevel provider: ECG, plain radiologic studies. Counseling: I had a detailed discussion with the patient and/or guardian regarding: the historical points, exam findings, and any diagnostic results supporting the discharge/admit diagnosis, lab results, radiology results, the need for further work-up and treatment in the hospital. 02/25 00:08 ED course: Patient unable to be transferred to any facility at this time. Patient rn handed off to me by Dr. Sarah well after shift change. Spoke with hospitalist service who in turn spoke with Dr. Vail who states patient cannot be admitted here as we do not have interventional pulmonology. At the same time patient cannot be transferred due to every hospital in the area at capacity and we were also told that the only available interventionalists [facility]. Told by hospitalist service that patient would have to stay down here and continue to try in the morning for transfer. Patient states takes Seroquel at night for sleep and is having trouble resting right now, nursing requested Seroquel 25 mg which is her home dose, vital signs stable, Seroquel ordered.. 00:50 ED course: Patient evaluated by me, speaking full sentences, mild tachypnea, updated rn with plan for transfer but no beds available. Also told her that Dr. Vail said we cant keep her here. We will continue to monitor her and reattempt transfer in the morning.. 05:49 ED course: Re-initiated transfer to [facility] because they said they might have openings rn later this morning, told at 0550 that they are still at capacity. . 08:10 ED course: The patient continues to be stable in the ED. She does not currently require kdr any further immediate intervention I have discussed with Dr. Vail who will see the patient in a few minutes and evaluate as well as make recommendations for ongoing treatment in the ED pending transfer. 09:15 ED course: We are still attempting to transfer the patient. As yet there are no kdr facilities with beds and/or a surgical consultant available to manage this patient. Patient is remained stable in the ED at this time. I have reevaluated her and she had no complaint other than being hungry at this time. Her vital signs have been stable during the course of her stay in the ED. She is on minimal oxygen support. She has not required any further intervention. 02/24 15:53 Order name: Basic Metabolic Panel; Complete Time: 17:04 [facility] 02/24 15:53 Order name: CBC with Diff; Complete Time: 17:17 [facility] 02/24 15:53 Order name: LFT's; Complete Time: 17:04 [facility] 02/24 15:53 Order name: Magnesium; Complete Time: 17:04 [facility] 02/24 15:53 Order name: NT PRO-BNP; Complete Time: 17:04 [facility] 02/24 15:53 Order name: PT-INR; Complete Time: 17:02 [facility] 02/24 15:53 Order name: Troponin HS; Complete Time: 17:04 [facility] 02/24 15:53 Order name: Lipase; Complete Time: 17:04 [facility] 02/24 15:53 Order name: Lactate; Complete Time: 17:04 [facility] 02/24 15:53 Order name: Procalcitonin; Complete Time: 17:17 [facility] 02/24 15:53 Order name: Urine Culture [facility] 02/24 15:53 Order name: Blood Culture Adult (2) [facility] 02/24 15:53 Order name: COVID-19/FLU A+B/RSV (Document "Date of Onset" if Symptomatic); Complete [facility] Time: 18:30 02/24 17:15 Order name: CBC Smear Scan; Complete Time: 17:17 [facility] 02/24 15:53 Order name: XRAY Chest (1 view); Complete Time: 18:21 [facility] 02/24 17:02 Order name: CT Chest For PE Angio; Complete Time: 18:00 [facility] 02/24 18:30 Order name: CRP; Complete Time: 19:56 [facility] 02/24 20:03 Order name: Lactate Sepsis 2 HR Follow-up; Complete Time: 20:30 [facility] 02/25 00:08 Order name: Urine Dipstick-Ancillary; Complete Time: 00:12 [facility] 02/24 15:53 Order name: EKG; Complete Time: 15:54 [facility] 02/24 15:53 Order name: Cardiac monitoring; Complete Time: 16:39 [facility] 02/24 15:53 Order name: EKG - Nurse/Tech; Complete Time: 16:39 [facility] 02/24 15:53 Order name: IV Saline Lock; Complete Time: 16:39 [facility] 02/24 15:53 Order name: Labs collected and sent; Complete Time: 16:39 [facility] 02/24 15:53 Order name: O2 Per Protocol; Complete Time: 16:39 [facility] 02/24 15:53 Order name: O2 Sat Monitoring; Complete Time: 16:39 [facility] 02/24 15:53 Order name: Urine Dipstick-Ancillary (obtain specimen); Complete Time: 00:03 [facility] 02/24 15:53 Order name: IV Saline Lock - Large Bore; Complete Time: 16:32 [facility] 02/25 07:57 Order name: Diet Heart Healthy; Complete Time: 07:58 [facility] 02/25 11:42 Order name: Respiratory Therapy Consult EDMS 02/25 11:50 Order name: CONS Physician Consult EDMS EC/18 17:05 Rate is 113 beats/min. Rhythm is regular. QRS [place] is Normal. [place] interval is normal. [facility] QRS interval is normal. QT interval is normal. No Q waves. T waves are Normal. No ST changes noted. Clinical impression: Sinus tachycardia and No evidence of ischemia. Interpreted by me. Reviewed by me. Administered Medications: 16:42 Drug: NS 0.9% 1000 ml Route: IV; Rate: 1 bolus; Site: left antecubital; eo2 17:57 Follow up: Response: No adverse reaction; IV Status: Completed infusion; IV Intake: ld1 1000ml 16:48 Drug: levofloxacin 500 mg Volume: 100 ml; Route: IVPB; Infused Over: 60 mins; Site: ld1 left antecubital; 18:53 Follow up: Response: No adverse reaction; IV Status: Completed infusion; IV Intake: ld1 100ml 16:49 Drug: SOLU-Medrol (methylPrednisoLONE) 125 mg Route: IVP; Site: left antecubital; ld1 17:57 Follow up: Response: No adverse reaction ld1 16:49 Drug: Xopenex (levalbuterol) 3.75 mg Route: Inhalation; ld1 18:16 Follow up: Response: No adverse reaction ld1 16:49 Drug: AtroVENT (ipratropium) Aerosol 0.5 mg Route: Inhalation; ld1 18:16 Follow up: Response: No adverse reaction ld1 17:56 Drug: NS 0.9% 1000 ml Route: IV; Rate: 1 bolus; Site: left antecubital; ld1 18:53 Follow up: IV Status: Completed infusion; IV Intake: 1000ml ld1 02/25 02:59 Follow up: Response: No adverse reaction; IV Intake: 1000ml erwin 02/24 17:56 Drug: Aspirin Chewable Tablet 162 mg Route: PO; ld1 18:53 Follow up: Response: No adverse reaction ld1 17:56 Drug: Pepcid (famotidine) 20 mg Route: IVP; Site: left antecubital; ld1 18:52 Follow up: Response: No adverse reaction ld1 17:56 Drug: Xopenex (levalbuterol) 1.25 mg Route: Inhalation; ld1 18:52 Follow up: Response: No adverse reaction ld1 21:00 Drug: Lovenox (enoxaparin) 40 mg Route: Sub-Q; Site: abdomen; erwin 02/25 04:06 Follow up: Response: No adverse reaction erwin 02/24 21:01 Drug: Zosyn (piperacillin-tazobactam) 3.375 grams Route: IVPB; Infused Over: 60 mins; erwin Site: left antecubital; 02/25 04:05 Follow up: Response: No adverse reaction; IV Intake: 100ml erwin 07:35 Follow up: Response: No adverse reaction; IV Status: Completed infusion candelaria 00:17 Not Given (not available in hospitall): SEROquel (QUEtiapine) 25 mg PO once erwin 00:17 Drug: XANax (alprazolam) Tablet 0.5 mg Route: PO; erwin 00:52 Follow up: Response: Anxiety decreased erwin 09:19 Drug: guaiFENesin AC (codeine-guaifenesin) Liquid (10 mg-100 mg/5 mL) 5 ml Route: PO; candelaria 12:34 Follow up: Response: No adverse reaction candelaria 18:12 Follow up: Response: No adverse reaction candelaria 16:20 Drug: XANax (alprazolam) Tablet 0.5 mg Route: PO; candelaria 18:11 Follow up: Response: No adverse reaction candelaria Disposition Summary: 02/25/21 11:16 Hospitalization Ordered Hospitalization Status: Inpatient Admission(02/25/21 11:16) kdr Provider: Maynor Curran(02/25/21 11:16) kdr Condition: Fair(02/25/21 11:16) kdr Problem: new(02/25/21 11:16) kdr Symptoms: have improved(02/25/21 11:16) kdr Bed/Room Type: Standard(02/25/21 11:16) kdr Location: Telemetry/MedSurg (Inpatient)(02/25/21 18:48) bd Room Assignment: 419(02/25/21 18:48) bd Diagnosis - COPD/chronic obstructive pulmonary disease, unspecified bacterial pneumonia, kdr hypotension, Discharge Instructions: - Discharge Summary Sheet candelaria Forms: - Medication Reconciliation Form kdr - SBAR form kdr - Family Work Release candelaria Signatures: Dispatcher [employer] EDMS Lisa Friedman Corey, MD MD cha Rittger, Kevin, MD MD kdr Nieto, Roman, MD MD rn Attema, Lee, TEST RIDER-C TEST RIDER-Cla1 Yris Thornton RN RN ld1 Citlalli Tyler RN RN bo Au-Stager, Heather RN RN candelaria Liana Lopez, MITCHELL RN eo2 Corrections: (The following items were deleted from the chart) 02/24 16:11 16:09 PMHx: copd; eo2 eo2 18:51 17:15 Inpatient Admission anabela anabela 18:51 17:15 Maynor Curran anabela anabela 18:51 17:15 Telemetry/MedSurg (Inpatient) anabela anabela 18:51 17:15 Fair anabela anabela 18:51 17:15 an acute exacerbation anabela anabela 18:51 17:15 have improved anabela anabela 18:51 17:15 Standard anabela anabela 18:51 17:15 anabela anabela 18:51 17:15 COPD/ Chronic obstructive pulmonary disease with (acute) exacerbation anabela anabela 18:51 17:15 Hypoxemia anabela anabela 18:51 17:15 Hypotension due to drugs anabela anabela 18:51 17:15 Neoplasm of uncertain behavior of trachea, bronchus and lung - advanced lung anabela cancer anabela 18:51 17:15 Atelectasis anabela anabela 18:51 18:00 Unspecified bacterial pneumonia - LEFT BASE anabela anabela 02/25 11:15 02/24 18:57 TO [facility]UTE [facility]ARE [facility], INTERVENTIONAL PULMONOLOGY anabela kdr 02/25 11:15 02/24 18:57 Other Acute Care Facility anabela kdr 02/25 11:15 02/24 18:57 Higher level of care anabela kdr 02/25 11:15 02/24 18:57 Fair anabela kdr 02/25 11:15 02/24 18:57 new anabela kdr 02/25 11:15 02/24 18:57 have improved anabela kdr 02/25 11:15 02/24 18:57 COPD/ Chronic obstructive pulmonary disease with (acute) exacerbation anabela kdr 02/25 11:15 02/24 18:57 Unspecified bacterial pneumonia - LEFT LOWER LOBE anabela kdr 02/25 11:15 02/24 18:57 Hypotension, unspecified - RESOLVED anabela kdr 02/25 11:15 02/24 18:57 Coronavirus infection, unspecified anabela kdr 02/25 11:15 02/24 18:57 Atelectasis - SOFT TISSUE OCCULDES RIGHT BRONCHUS anabela kdr 02/25 11:15 02/24 18:57 Malignant neoplasm of unspecified part of right bronchus or lung - ADVANCED kdr LUNG CANCER anabela 02/25 18:02 11:16 Telemetry/MedSurg (Inpatient) kdr bd 18:02 11:16 kdr bd 18:48 18:02 [facility] ER HOLD bd bd 18:48 18:02 ERHOLD- bd bd
[2021-02-24] MEDS ORDERED: ASPIRIN 81 MG CHEWABLE TABLET ONE (17:31)
[2021-02-24] MEDS ORDERED: FAMOTIDINE 20 MG/2 ML VIAL IV ONE (17:31)
--- NOTE | 2021-02-24 17:57 | RAD REPORT ---
EXAM DESCRIPTION: CT - Chest For Pe Angio - 02/24/2021 5:39 pm CLINICAL HISTORY: Chest pain COMPARISON: August 2020 TECHNIQUE: Dynamically enhanced axial 3 mm thick images of the chest were obtained during administra tion of <100> mL Isovue 370 IV contrast. Coronal and oblique reconstruction images were generated and reviewed. Exam utilizes a protocol for optimal evaluation of pulmonary arterial tree. Maximum intensity projections 3D imaging was utilized All CT scans are performed using dose optimization technique as appropriate and may include automated exposure control or mA/KV adjustment according to patient size. FINDINGS: A pulmonary embolus is not seen. Central pulmonary arteries are dilated. A thoracic aortic aneurysm is not noted. A pericardial effusion is not seen. Soft tissue occludes the right mainstem bronchus resulting and complete right atelectasis. Small right pleural effusion. Bilateral hilar lymphadenopathy. Air trapping within the left lung. Mild to moderate left lower lobe opacities. IMPRESSION: Negative for a pulmonary embolism. Soft tissue occludes the right mainstem bronchus resulting in complete right atelectasis Bilateral hilar lymphadenopathy
--- NOTE | 2021-02-24 17:57 | RAD REPORT ---
EXAM DESCRIPTION: [place] Single View02/24/2021 4:22 pm CLINICAL HISTORY: Cough COMPARISON: August 2020 FINDINGS: Complete right atelectasis [id number] opacities left lung base may represent pneumonia. Heart is mildly enlarged
[2021-02-24 18:27] LABS: SARS-COV-2 RT PCR POSITIVE (NEGATIVE)
[2021-02-24] MEDS ORDERED: PIPERACIL/TAZO 3.375 GM VIAL IV ONE (20:54)
[2021-02-24] MEDS ORDERED: ENOXAPARIN 40 MG/0.4 ML SQ ONE (20:54)
[2021-02-24] MEDS ORDERED: NA CHLORIDE 0.9% 50 ML ONE (20:55)
[2021-02-25 00:08] LABS: Urine Blood Trace-intact (Negative); Urine Glucose Negative (Negative); Urine Protein Negative (Negative)
[2021-02-25] MEDS ORDERED: ALPRAZOLAM 0.5 MG TABLET ONE ×2 (00:17→16:19)
[2021-02-25] MEDS ORDERED: GUAIFENESIN/CODEINE 5ML UCUP ONE (09:19)
[2021-02-25] MEDS: METHYLPREDNISOLONE 125 MG INJ IV SCH ×2 (11:42→21:00)
--- NOTE | 2021-02-25 11:46 | P.CNS ---
Date of Consult: 02/25/21 Reason for Consult: Lung cancer with atelectasis Chief Complaint: Shortness of breath History of Present Illness: Patient is 65 years of age went to the cancer center was complaining of shortness of breath hypoxic came to the emergency room and complete opaci fication of the right lung history of lung cancer became short of breath in the past 3 days denies any fever chills or chest - Past Medical/Surgical History -: Lung cancer -: COPD Review of Systems 10-point ROS is otherwise unremarkable Respiratory: Shortness of Breath Physical Examination General: Alert, Moderate distress Neck: Supple Respiratory: Other (Bronchial breathing on the right side trachea deviated to the right) Cardiovascular: No edema, Regular rate/rhythm, Normal S1 S2 Gastrointestinal: Normal bowel sounds, Soft and benign Laboratory Data (last 24 hrs) 02/24/21 16:20: PT 16.4 H, INR 1.42 02/24/21 16:20: WBC 5.50, Hgb 12.5, Hct 39.0, Plt Count 202 02/24/21 16:20: Sodium 140, Potassium 3.6, BUN 14, Creatinine 1.08, Glucose 123 H, Magnesium 1.9, Total Bilirubin 0.6, AST 15, ALT 21, Alkaline Phosphatase 99, Lipase 36 L - Problems (1) Atelectasis of right lung Current Visit: Yes Status: Acute Plan: Patient is 65 years of age history of lung cancer admitted with complete right- sided lung collapse probably has some endobronchial obstruction recommend transfer to tertiary care center for interventional pulmonology probably need bronchoscopy with laser and stent placement labs reviewed recommend starting patient is on Zosyn steroids and nebulizer chest percussion right side up for now stable for transfer minimal oxygen requirement
--- NOTE | 2021-02-25 11:50 | P.HP ---
Certification for Inpatient Patient admitted to: Inpatient With expected LOS: >2 Midnights Practitioner: I am a practitioner with admitting privileges, knowledge of patient current condition, hospital course, and medical plan of care. Services: Services provided to patient in accordance with Admission requirements found in Title 42 Section 412.3 of the Code of Federal Regulations Patient History Date of Service: 02/25/21 Reason for admission: Shortness of breath History of Present Illness: 65yo F, PMH: Lung cancer, presents to ED due to progressively worsening shortness of breath over the last several days. She reports specifically over the last 3 days she has noted low oxygen levels and low blood pressure at home. She was advised to come to the hospital. She reports history of lung cancer, was lost to follow-up. She denies any recent fevers or chills, no nausea/vomiting, no diarrhea. No significant knee swelling in her lower extremities. In the ED, work-up was most notable for a CT scan revealing right lung mass causing complete occlusion of the right bronchus. Multiple attempts were made to transfer the patient to tertiary care center where a interventional corporate development analyst will be able to possibly perform a stent or further procedures that we are unable to do here. Unfortunately all the hospitals in the area for/at capacity, denied transfer. [facility] reported that if patient is admitted, they can place patient on a wait list. Allergies No Known Allergies Allergy (Unverified 02/25/21 12:07) - Past Medical/Surgical History -: Lung cancer -: COPD -: Hysterectomy - Family History Family History: Reviewed- Non-Contributory - Social History Smoking Status: Former smoker Alcohol use: No Place of Residence: Home Review of Systems 10-point ROS is otherwise unremarkable Physical Examination - Physical Exam General: Alert, In no apparent distress, Oriented x3 HEENT: Sclerae nonicteric Respiratory: Diminished (Minimal on right), Crackles/rales Cardiovascular: No edema, Regular rate/rhythm Gastrointestinal: Soft and benign, Non-distended, No tenderness Musculoskeletal: No tenderness Integumentary: No rashes Neurological: Normal speech, Normal affect - Studies Laboratory Data (last 24 hrs) 02/24/21 16:20: PT 16.4 H, INR 1.42 02/24/21 16:20: WBC 5.50, Hgb 12.5, Hct 39.0, Plt Count 202 02/24/21 16:20: Sodium 140, Potassium 3.6, BUN 14, Creatinine 1.08, Glucose 123 H, Magnesium 1.9, Total Bilirubin 0.6, AST 15, ALT 21, Alkaline Phosphatase 99, Lipase 36 L Assessment and Plan - Advance Directives Does patient have a Living Will: No Does patient have a Durable POA for Healthcare: No Physician Review Additional Text: Problem list Lung cancer Right sided lung collapse secondary to right lung mass occluding right mainstem bronchus Anxiety Will admit patient, cover with IV antibiotics, steroids Pulmonology consulted Oxygen as needed DVT prophylaxis Transfer reinitiated Patient requires tertiary care center for further intervention Obtain/confirm home medications restart as appropriate VTE: Lovenox Code: Full Dispo: Transfer to tertiary care center as soon as possible Time Spent Managing Pts Care (In Minutes): 60
[2021-02-25] MEDS: ALBUTEROL 2.5 MG/3 ML NEB SOL NEB SCH ×3 (12:00→21:57)
[2021-02-25] MEDS: PIPER TAZO 3.375 GM in NA CHLORIDE 0.9% 100 ML IV SCH ×2 (12:00→22:30)
[2021-02-25] MEDS ORDERED: METHYLPREDNISOLONE 125 MG INJ ONE (14:18)
[2021-02-25] MEDS ORDERED: PIPERACIL/TAZO 3.375 GM VIAL IV ONE (14:19)
[2021-02-25] MEDS ORDERED: NA CHLORIDE 0.9% 100 ML ONE (14:19)
[2021-02-25] MEDS ORDERED: INFLUENZA VACCINE (for 6+ mo) 0.5 ML DOSE IMVAC ONE (15:00)
[2021-02-25] MEDS ORDERED: ONDANSETRON 4 MG/2 ML VIAL IV PRN (16:01)
[2021-02-25] MEDS: LORAZEPAM 0.5 MG TABLET PO PRN ×2 (16:09→22:59)
[2021-02-25] MEDS ORDERED: ALBUTEROL 2.5 MG/3 ML NEB SOL ONE ×3 (16:27→18:22)
[2021-02-25] MEDS ORDERED: IPRATROPIUM BROM 0.5MG/2.5ML ONE ×2 (18:16→18:22)
[2021-02-25] MEDS: IPRATROPIUM BROM 0.5MG/2.5ML NEB PRN (21:57)
--- NOTE | 2021-02-26 03:55 | EKG ---
Test Date: 2021-02-24 Test Time: 16:05:51 Trade Manager: BRANDY MEASUREMENT RESULTS: Intervals: Rate: 113 [place]: 136 QRSD: 78 QT: 342 QTc: 469 Crary: P: 42 [place]: 136 QRS: 218 T: 54 INTERPRETIVE STATEMENTS: Sinus tachycardia Right superior axis deviation Low voltage QRS Abnormal ECG No previous ECG available for comparison Electronically Signed On 02-26-21 03:54:18 WATERPROOF COATING MACHINE TENDER by Werner Chavez
[2021-02-26] MEDS: PIPER TAZO 3.375 GM in NA CHLORIDE 0.9% 100 ML IV SCH (04:43)
--- NOTE | 2021-02-26 06:17 | P.PN ---
Date of Service: 02/26/21 Subjective: No acute events overnight. Patient reports feeling slightly better More energy, breathing slightly more comfortably with some chronic R knee discomfort No new complaints or symptoms ROS: 10 point ROS as noted above, otherwise negative Physical exam General: Alert, In no apparent distress, Oriented x3 HEENT: Sclerae nonicteric Respiratory: Diminished (Minimal on right), Crackles/rales, nonlabored on 4L NC Cardiovascular: No edema, Regular rate/rhythm Gastrointestinal: Soft and benign, Non-distended, No tenderness Musculoskeletal: No tenderness Neurological: Normal speech, Normal affect Problem list Lung cancer Right sided lung collapse secondary to right lung mass occluding right mainstem bronchus COVID positive Anxiety R knee arthritis, chronic Continue IV antibiotics, steroids Nebulizers Oxygen as needed Pulmonology consulted DVT prophylaxis Transfer initiated to [facility] yesterday, patient reportedly on wait list We will also reinitiate transfer to [facility], where patient's swiss type screw machine operator is, he reportedly accepted the patient yesterday, however there is no bed available. Initiate transfer to [facility] as well Patient was COVID-positive, but overall seems asymptomatic at this time Patient requires tertiary care center for further intervention - possible bronch / stent Code: full Dispo: Transfer to tertiary care center as soon as possible Time Spent Managing Pts Care (In Minutes): 35
--- NOTE | 2021-02-26 07:38 | RAD REPORT ---
EXAM DESCRIPTION: RAD - Chest Single View - 02/26/2021 7:03 am CLINICAL HISTORY: f/u R mass / atelectasis COMPARISON: Chest Single View dated 02/24/2021; Chest For Pe Angio dated 02/24/2021; CT-RAD THERAPY FL D PLACE-CHEST dated 11/21/2019 FINDINGS: Re- demonstrated complete opacification of the right lung likely secondary to a combinatio n of mass, effusion, and atelectasis. Emphysema and irregular opacities noted in the left lung. Cardi ac size is obscured. No fractures seen. IMPRESSION: No significant change compared with 02/24/2021. Complete collapse of the right lung. Emp hysema and irregular airspace disease in left lung which could represent infection/inflammation.
[2021-02-26 08:44] LABS: Absolute Lymphocytes (CBC) 0.3 K/uL (0.7-4.9); Hematocrit 34.5 % (36.0-45.0); Lymphocytes % 3.9 % (15.3-44.8); MPV 7.5 fL (7.6-11.3); RBC Red Blood Cell Count 3.72 M/uL (3.86-4.86)
[2021-02-26] MEDS ORDERED: FUROSEMIDE 20 MG/ 2ML VIAL IV ONE (08:53)
[2021-02-26] MEDS: METHYLPREDNISOLONE 40 MG INJ IV SCH ×2 (09:00→22:08)
[2021-02-26] MEDS: ALBUTEROL 2.5 MG/3 ML NEB SOL NEB SCH ×2 (09:15→20:30)
[2021-02-26] MEDS: IPRATROPIUM BROM 0.5MG/2.5ML NEB PRN ×2 (09:15→17:15)
[2021-02-26 09:50] LABS: ALT/SGPT 34 U/L (12-78); AST/SGOT 28 U/L (15-37); Albumin 2.7 g/dL (3.4-5.0); Alkaline Phosphatase 89 U/L (45-117); BUN Blood Urea Nitrogen 15 mg/dL (7-18); Bicarbonate 28 mmol/L (21-32); Bilirubin Total 0.4 mg/dL (0.2-1.0); Glucose Level 107 mg/dL (74-106); Magnesium 2.1 mg/dL (1.8-2.4); Potassium 4.3 mmol/L (3.5-5.1); Protein, Total 6.6 g/dL (6.4-8.2); Sodium Level 143 mmol/L (136-145)
[2021-02-26] MEDS: AMOX/K CLAV 500 MG TAB PO SCH ×2 (11:10→21:23)
[2021-02-26] MEDS: DOXYCYCLINE 100 MG CAP PO SCH ×2 (11:11→21:23)
[2021-02-26] MEDS: ENOXAPARIN 40 MG/0.4 ML SQ SCH (11:12)
[2021-02-26] MEDS ORDERED: IBUPROFEN 600 MG TAB PO PRN (12:29)
[2021-02-26] MEDS: LORAZEPAM 0.5 MG TABLET PO PRN (16:58)
[2021-02-27] MEDS: ALBUTEROL 2.5 MG/3 ML NEB SOL NEB SCH ×4 (01:20→19:50)
--- NOTE | 2021-02-27 06:14 | P.PN ---
Date of Service: 02/27/21 Subjective: not much sleep overnight feels breathing is slightly easier no new symptoms ROS: 10 point ROS as noted above, otherwise negative Physical exam General: Alert, fatigued appearing HEENT: Sclerae nonicteric Respiratory: absent on right, mild labored on 4L NC Cardiovascular: No edema, Regular rate/rhythm Gastrointestinal: Soft and benign, Non-distended, No tenderness Neurological: Normal speech, Normal affect Problem list Lung cancer Right sided lung collapse secondary to right lung mass occluding right mainstem bronchus COVID positive Anxiety R knee arthritis, chronic insomnia Continue IV antibiotics, steroids Nebulizers Oxygen as needed Pulmonology consulted DVT prophylaxis [facility] initiated transfer to [facility] 02/27 Patient is COVID+ Patient requires tertiary care center for further intervention - possible bronch / stent Code: full Dispo: Transfer to tertiary care center as soon as possible Time Spent Managing Pts Care (In Minutes): 35
[2021-02-27 06:32] LABS: Absolute Lymphocytes (CBC) 0.2 K/uL (0.7-4.9); Hematocrit 38.6 % (36.0-45.0); Lymphocytes % 3.9 % (15.3-44.8); MPV 8.3 fL (7.6-11.3); RBC Red Blood Cell Count 4.11 M/uL (3.86-4.86)
[2021-02-27 08:38] LABS: BUN Blood Urea Nitrogen 24 mg/dL (7-18); Bicarbonate 29 mmol/L (21-32); C-Reactive Protein 6.44 mg/L (<3.00); Ferritin 122.5 ng/mL (8-388); Glucose Level 106 mg/dL (74-106); Potassium 4.1 mmol/L (3.5-5.1); Sodium Level 142 mmol/L (136-145)
[2021-02-27] MEDS: ENOXAPARIN 40 MG/0.4 ML SQ SCH (09:13)
[2021-02-27] MEDS: METHYLPREDNISOLONE 40 MG INJ IV SCH (09:13)
[2021-02-27] MEDS: AMOX/K CLAV 500 MG TAB PO SCH ×2 (09:13→21:00)
[2021-02-27] MEDS: DOXYCYCLINE 100 MG CAP PO SCH ×2 (09:13→21:00)
--- NOTE | 2021-02-27 11:30 | P.PN ---
Subjective Date of Service: 02/27/21 Chief Complaint: Shortness of breath Condition stable no change awaiting transfer to a tertiary care facility discussed again with the patient regarding DNR she is adamant she wants to be full code repeat chest x-ray ordered Review of Systems General: Weakness Respiratory: Shortness of Breath Physical Examination - Vital Signs Temperature: 97.2 F Blood Pressure: 112/72 Pulse: 64 Respirations: 18 Pulse Ox (%): 94 - Physical Exam General: Alert, In no apparent distress, Oriented x3 Respiratory: Other (Bronchial breathing on the right side) - Studies Microbiology Data (last 24 hrs): 02/25/21 00:00 Clean Catch Urine Bullard Count - Final No growth. 02/25/21 00:00 Clean Catch Urine - Final No growth. Assessment & Plan - Problems (Diagnosis) (1) Atelectasis of right lung Current Visit: Yes Status: Acute Plan: No change in patient's condition appears to be stable discussed again with DNR she wants to be full code awaiting transfer to a tertiary care facility continue with Lovenox for DVT prophylaxis changed to p.o. prednisone continue with antibiotic still requiring at least 4 L of nasal cannula oxygen prognosis very poor
--- NOTE | 2021-02-27 12:14 | RAD REPORT ---
EXAM DESCRIPTION: RAD - Chest Single View - 02/27/2021 12:08 pm CLINICAL HISTORY: Lung cancer with atelectasis COMPARISON: Chest Single View dated 02/26/2021; Chest Single View dated 02/24/2021; Chest For Pe Angio dated 02/24/2021 FINDINGS: No significant change compared with yesterday. Similar complete opacification of the right hemithorax. Irregular airspace disease in the left lung base with background emphysema again noted. No fractures are identified. IMPRESSION: No change compared 02/26/2021. White out of the right lung likely a combination of atele ctasis, effusion, and mass . Irregular opacities at the left lung base remains concerning for infecti on or inflammation.
[2021-02-27] MEDS: LORAZEPAM 0.5 MG TABLET PO PRN (18:31)
[2021-02-27] MEDS: predniSONE 20 MG TAB PO SCH (21:00)
[2021-02-27] MEDS: IPRATROPIUM BROM 0.5MG/2.5ML NEB PRN (23:10)
[2021-02-28] MEDS: ALBUTEROL 2.5 MG/3 ML NEB SOL NEB SCH ×5 (01:30→20:24)
[2021-02-28] MEDS: LORAZEPAM 0.5 MG TABLET PO PRN (01:51)
[2021-02-28] MEDS ORDERED: ALPRAZOLAM 0.5 MG TABLET PO PRN (06:24)
--- NOTE | 2021-02-28 06:26 | P.PN ---
Date of Service: 02/28/21 Subjective: Reports feeling "a lot better" than when she came in Breathing more comfortably Nursing staff report patient intermittently feels like she cannot breathe, screams at times Did not sleep too well last night ROS: 10 point ROS as noted above, otherwise negative Physical exam General: Alert, NAD HEENT: Sclerae nonicteric Respiratory: absent on right, mild labored on 15L NC Cardiovascular: No edema, Regular rate/rhythm Gastrointestinal: Soft and benign, Non-distended, No tenderness Neurological: Normal speech, Normal affect Problem list Lung cancer Right sided lung collapse secondary to right lung mass occluding right mainstem bronchus COVID positive Anxiety R knee arthritis, chronic insomnia Continue IV antibiotics, steroids Nebulizers Oxygen as needed Pulmonology consulted DVT prophylaxis [facility] on 02/27 initiated transfer to [facility] 02/27 Patient is COVID+ Patient requires tertiary care center for further intervention - possible bronch / stent seems anxiety is also contributing Code: full Dispo: Transfer to tertiary care center as soon as possible Time Spent Managing Pts Care (In Minutes): 35
--- NOTE | 2021-02-28 07:13 | RAD REPORT ---
EXAM DESCRIPTION: Sharadt Single View02/28/2021 7:02 am CLINICAL HISTORY: Shortness of breath COMPARISON: February 27, 2021 FINDINGS: Complete right atelectasis unchanged. Overall no significant change in the left basilar opacities. Hilar lymphadenopathy unchanged.
[2021-02-28 07:56] LABS: Absolute Lymphocytes (CBC) 0.3 K/uL (0.7-4.9); BUN Blood Urea Nitrogen 25 mg/dL (7-18); Bicarbonate 30 mmol/L (21-32); Ferritin 115.3 ng/mL (8-388); Glucose Level 96 mg/dL (74-106); Lymphocytes % 5.5 % (15.3-44.8); Potassium 3.6 mmol/L (3.5-5.1); RBC Red Blood Cell Count 3.86 M/uL (3.86-4.86); Sodium Level 142 mmol/L (136-145)
[2021-02-28 08:00] LABS: C-Reactive Protein < 2.90 mg/L (<3.00)
[2021-02-28] MEDS ORDERED: RIVAROXABAN 10 MG TABLET PO SCH (09:00)
[2021-02-28] MEDS: AMOX/K CLAV 500 MG TAB PO SCH ×2 (10:01→21:03)
[2021-02-28] MEDS: ENOXAPARIN 40 MG/0.4 ML SQ SCH (10:01)
[2021-02-28] MEDS: PANTOPRAZOLE 40MG TABLET PO SCH (10:02)
[2021-02-28] MEDS: predniSONE 20 MG TAB PO SCH ×2 (10:02→21:04)
[2021-02-28] MEDS: DOXYCYCLINE 100 MG CAP PO SCH ×2 (10:02→21:03)
[2021-02-28 14:42] VITALS: BMI 29.3
[2021-02-28] MEDS: ALPRAZOLAM 0.5 MG TABLET PO SCH ×2 (17:27→21:04)
[2021-02-28] MEDS: IPRATROPIUM BROM 0.5MG/2.5ML NEB PRN (20:24)
[2021-02-28] MEDS: QUETIAPINE 100MG TAB PO SCH (21:04)
[2021-03-01] MEDS: ALBUTEROL 2.5 MG/3 ML NEB SOL NEB SCH ×5 (02:00→20:00)
[2021-03-01 03:58] LABS: Ferritin 101.1 ng/mL (8-388)
[2021-03-01 03:59] LABS: C-Reactive Protein < 2.90 mg/L (<3.00)
--- NOTE | 2021-03-01 06:15 | P.PN ---
Date of Service: 03/01/21 Subjective: Got better sleep last night with Seroquel Overall feeling about the same No new complaints/symptoms ROS: 10 point ROS as noted above, otherwise negative Physical exam General: Alert, NAD HEENT: Sclerae nonicteric Respiratory: absent on right, mild labored on 10L NC Cardiovascular: No edema, Regular rate/rhythm Gastrointestinal: Soft and benign, Non-distended, No tenderness Neurological: Normal speech, Normal affect Problem list Lung cancer Right sided lung collapse secondary to right lung mass occluding right mainstem bronchus COVID positive Anxiety R knee arthritis, chronic insomnia Continue antibiotics, steroids Nebulizers Oxygen as needed Pulmonology consulted DVT prophylaxis [facility] on 02/27 initiated transfer to [facility] 02/27 Patient is COVID+ Patient requires tertiary care center for further intervention - possible bronch / stent seems anxiety is also contributing Continue home Tanja Lopez Code: full Dispo: Transfer to tertiary care center as soon as possible Unfortunately all facilities are full/without beds Time Spent Managing Pts Care (In Minutes): 35
[2021-03-01] MEDS: ENOXAPARIN 40 MG/0.4 ML SQ SCH (09:15)
[2021-03-01] MEDS: PANTOPRAZOLE 40MG TABLET PO SCH (09:16)
[2021-03-01] MEDS: AMOX/K CLAV 500 MG TAB PO SCH ×2 (09:16→20:23)
[2021-03-01] MEDS: ALPRAZOLAM 0.5 MG TABLET PO SCH ×3 (09:16→20:24)
[2021-03-01] MEDS: DOXYCYCLINE 100 MG CAP PO SCH ×2 (09:17→20:23)
[2021-03-01] MEDS: predniSONE 20 MG TAB PO SCH ×2 (09:17→20:24)
[2021-03-01] MEDS: QUETIAPINE 100MG TAB PO SCH (20:24)
[2021-03-01] MEDS ORDERED: BENZONATATE 100 MG CAP PO PRN (20:44)
[2021-03-02] MEDS: ALBUTEROL 2.5 MG/3 ML NEB SOL NEB SCH ×3 (01:15→14:27)
[2021-03-02 03:48] LABS: Absolute Lymphocytes (CBC) 0.2 K/uL (0.7-4.9); Hematocrit 39.4 % (36.0-45.0); Lymphocytes % 3.5 % (15.3-44.8); MPV 7.5 fL (7.6-11.3); RBC Red Blood Cell Count 4.25 M/uL (3.86-4.86)
[2021-03-02 04:15] LABS: BUN Blood Urea Nitrogen 21 mg/dL (7-18); Bicarbonate 31 mmol/L (21-32); Glucose Level 141 mg/dL (74-106); Potassium 3.9 mmol/L (3.5-5.1); Sodium Level 142 mmol/L (136-145)
[2021-03-02 04:29] LABS: Blood Morphology Comment NOT SEEN (NOT SEEN); Platelet Estimate ADEQ
--- NOTE | 2021-03-02 06:17 | P.PN ---
Date of Service: 03/02/21 Subjective: coughing episodes yesterday, alec pascualcoco didn't help otherwise reports feeling about the same still waiting on transfer / acceptance ROS: 10 point ROS as noted above, otherwise negative Physical exam General: Alert, NAD HEENT: Sclerae nonicteric Respiratory: absent on right, mild labored on 8L NC Cardiovascular: No edema, Regular rate/rhythm Gastrointestinal: Soft and benign, Non-distended, No tenderness Neurological: Normal speech, Normal affect Problem list Lung cancer Right sided lung collapse secondary to right lung mass occluding right mainstem bronchus COVID positive Anxiety R knee arthritis, chronic insomnia Continue antibiotics, steroids, nebulizers Oxygen as needed Pulmonology consulted DVT prophylaxis Transfer initiated to [facility] on 02/27 Patient is COVID+ Patient requires tertiary care center for further intervention - possible bronch / stent seems anxiety is also contributing to her hypoxia / tachypnea Continue home Xanax, Seroquel Robitussin-AC for cough Code: full Dispo: Transfer to tertiary care center as soon as possible Unfortunately all facilities are full/without beds Time Spent Managing Pts Care (In Minutes): 35
[2021-03-02] MEDS: IPRATROPIUM BROM 0.5MG/2.5ML NEB PRN ×2 (08:02→20:17)
[2021-03-02] MEDS: DOXYCYCLINE 100 MG CAP PO SCH ×2 (09:00→21:00)
[2021-03-02] MEDS: AMOX/K CLAV 500 MG TAB PO SCH ×2 (09:47→21:28)
[2021-03-02] MEDS: ALPRAZOLAM 0.5 MG TABLET PO SCH ×3 (09:47→21:28)
[2021-03-02] MEDS: predniSONE 20 MG TAB PO SCH ×2 (09:47→21:28)
[2021-03-02] MEDS: ENOXAPARIN 40 MG/0.4 ML SQ SCH (09:47)
[2021-03-02] MEDS: PANTOPRAZOLE 40MG TABLET PO SCH (09:47)
[2021-03-02] MEDS: GUAIFENESIN/CODEINE 5ML UCUP PO PRN ×2 (13:28→22:48)
[2021-03-02 15:07] LABS: C-Reactive Protein 2.97
[2021-03-02] MEDS: QUETIAPINE 100MG TAB PO SCH (21:28)
[2021-03-03] MEDS: ALBUTEROL 2.5 MG/3 ML NEB SOL NEB SCH (02:53)
--- NOTE | 2021-03-03 03:08 | P.DS ---
Admission Date: 02/25/21 Discharge Date: 03/03/21 Disposition: TRANSFER TO [facility] Discharge Condition: CRITICAL Reason for Admission: Shortness of breath Consultations: Pulmonology - Problems (1) Atelectasis of right lung Current Visit: Yes Status: Acute Brief History of Present Illness: 65yo F, PMH: Lung cancer, presents to ED due to progressively worsening shortness of breath over the last several days. She reports specifically over the last 3 days she has noted low oxygen levels and low blood pressure at home. She was advised to come to the hospital. She reports history of lung cancer, was lost to follow-up. She denies any recent fevers or chills, no nausea/vomiting, no diarrhea. No significant knee swelling in her lower extremities. In the ED, work-up was most notable for a CT scan revealing right lung mass causing complete occlusion of the right bronchus. Multiple attempts were made to transfer the patient to tertiary care center where a interventional grinding wheel dresser will be able to possibly perform a stent or further procedures that we are unable to do here. Unfortunately all the hospitals in the area for/at capacity, denied transfer. [facility] reported that if patient is admitted, they can place patient on a wait list. Hospital Course: Multiple efforts were made to transfer the patient to [facility] for interventional pulmonology care. Patient eventually admitted and placed on waiting list at [facility]. Today the patient was accepted by [facility] for transfer. Patient was treated here with oral prednisone, oral antibiotics and breathing treatments. Patient is currently on 10L nasal cannula. Patient is stable for transfer and will be accepted to [facility] floor at [facility] for further treatment and care. Vital Signs/Physical Exam: Temp Pulse Resp BP Pulse Ox 96.9 F 97 H 19 105/61 90 L 03/03/21 00:00 03/03/21 00:00 03/03/21 00:00 03/03/21 00:00 03/03/21 00:00 General: Alert, In no apparent distress HEENT: Atraumatic, PERRLA, EOMI Neck: Supple, JVD not distended Respiratory: Diminished Cardiovascular: Regular rate/rhythm, Normal S1 S2 Gastrointestinal: Normal bowel sounds, No tenderness Musculoskeletal: No tenderness Integumentary: No rashes Neurological: Normal speech, Normal tone, Normal affect Lymphatics: No axilla or inguinal lymphadenopathy Laboratory Data at Discharge: WBC 5.30 K/uL (4.3-10.9) 03/02/21 03:39 Hgb 12.8 g/dL (12.0-15.0) 03/02/21 03:39 Hct 39.4 % (36.0-45.0) 03/02/21 03:39 Plt Count 238 K/uL (152-406) D 03/02/21 03:39 PT 16.4 SECONDS (9.5-12.5) H 02/24/21 16:20 INR 1.42 02/24/21 16:20 Sodium 142 mmol/L (136-145) 03/02/21 03:39 Potassium 3.9 mmol/L (3.5-5.1) 03/02/21 03:39 BUN 21 mg/dL (7-18) H 03/02/21 03:39 Creatinine 0.70 mg/dL (0.55-1.3) 03/02/21 03:39 Glucose 141 mg/dL (74-106) H 03/02/21 03:39 Magnesium 2.1 mg/dL (1.8-2.4) 02/26/21 09:08 Total Bilirubin 0.4 mg/dL (0.2-1.0) 02/26/21 09:08 AST 28 U/L (15-37) 02/26/21 09:08 ALT 34 U/L (12-78) 02/26/21 09:08 Alkaline Phosphatase 89 U/L (45-117) 02/26/21 09:08 Lipase 36 U/L (73-393) L 02/24/21 16:20 Home Medications: Alprazolam [Xanax] 1 tab PO DAILY 02/26/21 Ibuprofen 1 tab PO Q8H 02/26/21 Quetiapine Fumarate [Seroquel] 100 mg PO BEDTIME 02/26/21 Diet: Regular Activity: Fall precautions Followup: OOT,OOT [Primary Care Provider] - Time spent managing pt's care (in minutes): 30
[2021-03-03 03:42] VITALS: O2SAT 94
[2021-03-03 04:24] VITALS: BP 106/67; TEMP 97.2
== END 2021-03-03 04:30 | disposition short-term general hospital (02) | DRG 205 ==
LOC: ER 15:37 → ERHOLD 02-25 11:48 → 4TH 02-25 19:26
PROVIDERS: ADMIT Hospitalist; ATTEND Hospitalist
DX: J98.11 Atelectasis (principal); U07.1 COVID-19; C34.90 Malignant neoplasm of unspecified part of unspecified bronchus or lung; F41.9 Anxiety disorder, unspecified; M13.861 Other specified arthritis, right knee; G47.00 Insomnia, unspecified; R09.02 Hypoxemia
CPT/HCPCS: 0241U; 36415; 71045; 71275; 80048; 80053; 80076; 81003; 82728; 83605; 83690; 83735; 83880; 84145; 84484; 85025; 85610; 86140; 87040; 87086; 87088; 93005; 94640; 94668; 94760; 96365; 96366; 96367; 96372; 96375; 99213; 99285; J1650; J1940; J2405; J2543; J2920; J2930; J7030; J7512; Q9967